=== PATIENT | male | born 1950 | race Caucasian/White ===

== ENCOUNTER → 2016-06-07 | Outpatient (CLI) | payer BC, OTHER ==
[~2016-06-07] VITALS: Ht 182.9 cm; Wt 88.5 kg
[~2016-06-07] MED LIST: ADENOSINE 74 MG in GIVE UN-DILUTED 0 ML IV ONE; ADENOSINE 90 MG/30 ML INJ IV ONE; IOHEXOL 350 MG/ML 100ML IJ ONE
[2016-06-07 10:35] VITALS: BP 137/82
[2016-06-07 12:30] VITALS: BP 140/68
[2016-06-07 17:35] LABS: Albumin 3.9 g/dL (3.4-5.0); BUN/Creatinine Ratio 17.5; Bilirubin, Direct 0.1 mg/dL (0-0.2); Bilirubin, Total 0.4 mg/dL (0.2-1.0); Calcium 9.2 mg/dL (8.5-10.1); Potassium 4.3 mmol/L (3.5-5.1); Total Protein 7.6 g/dL (6.4-8.2)
[2016-06-07 17:36] LABS: Basophils # (auto) 0.1 uL; Basophils % (auto) 0.7 % (0.0-2.0); Eosinophils # (auto) 0.3 uL; Eosinophils % (auto) 3.3 % (0.0-7.0); Hematocrit 53.3 % (41.0-53.0); Hemoglobin 17.7 g/dL (13.5-17.5); Lymphocytes # (auto) 2.4 uL; Lymphocytes % (auto) 26.1 % (10.0-50.0); Mean Corpuscular Hemoglobin 31.3 pg (28.0-32.0); Mean Corpuscular Hgb Conc. 33.1 g/dL (32.0-36.0); Mean Corpuscular Volume 94.6 fL (80.0-100.0); Mean Platelet Volume 9.9 fL (7.4-10.4); Monocytes # (auto) 0.6 uL; Neutrophils # (auto) 5.9 uL; Neutrophils % (auto) 63.9 % (37.0-80.0); Platelet Count (auto) 239 10^3/uL (140-450); Red Cell Distribution Width 14.4 % (11.6-16.0); White Blood Cell 9.3 10^3/uL (4.4-10.8)
== END | disposition home or self-care (01) ==
LOC: Rad HDHVI 10:02
PROVIDERS: ATTEND Internal Medicine Cardiovascular Disease
DX: E03.9 Hypothyroidism, unspecified (principal); R97.20 Elevated prostate specific antigen [PSA]; R53.81 Other malaise; E55.9 Vitamin D deficiency, unspecified; E11.9 Type 2 diabetes mellitus without complications
CPT/HCPCS: 36415; 78452; 80048; 80061; 80076; 82306; 83036; 84153; 84403; 84439; 84443; 85025; 93005; 93880; 96374; 96375; G0463; J0153

== ENCOUNTER → 2016-07-31 | Outpatient (CLI) | payer BC ==
[~2016-07-31] MED LIST changes: -ADENOSINE 74 MG in GIVE UN-DILUTED 0 ML IV ONE; -ADENOSINE 90 MG/30 ML INJ IV ONE; +ASPI-231 PO; +ATEN-60 PO; +CLOP75TA41 PO; +DAPA1TAB2 PO; +GEMF600T3 PO; +GLIP-115 PO; -IOHEXOL 350 MG/ML 100ML IJ ONE; +LEVEMIR SC; +METF-316 PO; +TADA5TAB11 PO
[2016-07-31 12:36] LABS: Basophils # (auto) 0 uL; Basophils % (auto) 0.6 % (0.0-2.0); Eosinophils # (auto) 0.2 uL; Hematocrit 50.8 % (41.0-53.0); Hemoglobin 17.6 g/dL (13.5-17.5); Lymphocytes # (auto) 1.8 uL; Lymphocytes % (auto) 21.7 % (10.0-50.0); Mean Corpuscular Hemoglobin 31.9 pg (28.0-32.0); Mean Corpuscular Hgb Conc. 34.6 g/dL (32.0-36.0); Mean Corpuscular Volume 92.3 fL (80.0-100.0); Mean Platelet Volume 10.2 fL (7.4-10.4); Monocytes # (auto) 0.5 uL; Monocytes % (auto) 5.5 % (0.0-12.0); Neutrophils # (auto) 5.7 uL; Neutrophils % (auto) 69.2 % (37.0-80.0); Platelet Count (auto) 225 10^3/uL (140-450); Red Cell Distribution Width 13.9 % (11.6-16.0); White Blood Cell 8.3 10^3/uL (4.4-10.8)
[2016-07-31 12:40] LABS: INR 1.04 (0.9-1.15); Prothrombin Time 10.7 sec (9.37-12.3)
[2016-07-31 13:12] LABS: BUN/Creatinine Ratio 14.9; Calcium 8.6 mg/dL (8.5-10.1)
== END | disposition home or self-care (01) ==
LOC: Rad HDHVI 08:52
PROVIDERS: ATTEND Internal Medicine Cardiovascular Disease
DX: I10 Essential (primary) hypertension (principal); D64.9 Anemia, unspecified; R79.1 Abnormal coagulation profile
CPT/HCPCS: 36415; 71020; 80048; 85025; 85610; 85730; 93005; G0463

== ENCOUNTER 2016-08-03 06:56 | Inpatient (IN) | payer BC ==
[~2016-08-03] VITALS: Ht 182.9 cm; Wt 88.3 kg
[~2016-08-03 06:56] MED LIST changes: +LIDOCAINE 2%HCL (LOCAL ANESTH.) INJ 20ML MDV ONE
[2016-08-03] MEDS ORDERED: LIDOCAINE 2%HCL (LOCAL ANESTH.) INJ 20ML MDV ONE (07:00)
[2016-08-03] MEDS ORDERED: IOHEXOL 350 MG/ML 100ML IJ ONE (07:00)
[2016-08-03] MEDS ORDERED: IODIXANOL 320MG/ML 100ML BTL IV ONE (08:33)
[2016-08-03] MEDS ORDERED: MIDAZOLAM HCL 1MG/1ML-2 ML VIAL ONE (08:35)
[2016-08-03] MEDS ORDERED: ANGIOMAX 250 MG VIAL IV ONE (08:36)
[2016-08-03] MEDS ORDERED: SODIUM CHL 0.9% 50 ML ONE (08:36)
[2016-08-03] MEDS ORDERED: fentaNYL CITRATE 100 MCG/2 ML VL ONE (08:36)
[2016-08-03] MEDS ORDERED: SODIUM CHLORIDE 0.9% 1,000 ML IV SCH (09:48)
[2016-08-03] MEDS ORDERED: ASPirin-EC 81 mg tab PO SCH (10:00)
[2016-08-03] MEDS ORDERED: INSULIN DETEMIR(LEVEMIR) 1unit/0.01ml Soln (100units/ml) SC SCH (10:00)
[2016-08-03] MEDS ORDERED: CLOPIDOGREL BISULFATE 75 MG TAB PO SCH (10:00)
[2016-08-03] MEDS ORDERED: ATENOLOL 25 MG TAB PO SCH (10:00)
[2016-08-03] MEDS ORDERED: ACETAMINOPHEN 500 MG TAB PO PRN (10:00)
[2016-08-03] MEDS ORDERED: GEMFIBROZIL 600 MG TAB PO SCH (10:00)
[2016-08-03] MEDS ORDERED: ONDANSETRON HCL 4 MG/2 ML VIAL IV PRN (10:00)
[2016-08-03] MEDS ORDERED: DEXTROSE (50%) 50ML SYRG IV PRN (10:00)
[2016-08-03] MEDS ORDERED: TADALAFIL 5 MG PO SCH (11:00)
[2016-08-03] MEDS ORDERED: DAPAGLIFLOZIN 10 MG PO SCH (11:00)
[2016-08-03] MEDS ORDERED: glipiZIDE 5 MG TAB PO SCH (11:30)
[2016-08-03 11:54] VITALS: BP 121/67
[2016-08-03] MEDS: ACCU-CHEK COMFORT CURVE STRIP VI SCH ×3 (12:08→22:06)
[2016-08-03] MEDS: InsuLIN REG 1unit/0.01ml Soln (100units/ml) SC SCH ×2 (12:12→18:26)
[2016-08-03] MEDS: HYDROcodone-ACET 5/325MG TAB PO PRN ×2 (16:00→22:09)
[2016-08-03] MEDS: SODIUM CHLOR 0.9% PF (SALINE LOCK) 10ML VIAL IV SCH ×2 (16:00→22:06)
[2016-08-03 16:30] VITALS: BP 151/76
[2016-08-03 22:00] VITALS: BP 135/82
[2016-08-03] MEDS ORDERED: InsuLIN REG 1unit/0.01ml Soln (100units/ml) SC SCH (22:00)
[2016-08-04 05:30] VITALS: BP 138/84
[2016-08-04] MEDS: SODIUM CHLOR 0.9% PF (SALINE LOCK) 10ML VIAL IV SCH (06:33)
[2016-08-04] MEDS: ACCU-CHEK COMFORT CURVE STRIP VI SCH (06:33)
[2016-08-04] MEDS: HYDROcodone-ACET 5/325MG TAB PO PRN (06:37)
[2016-08-04] MEDS: InsuLIN REG 1unit/0.01ml Soln (100units/ml) SC SCH (06:37)
[2016-08-04 08:05] VITALS: BP 142/84
[2016-08-04 08:08] VITALS: BP 142/84
[2016-08-04 09:27] VITALS: BP 121/68
== END 2016-08-04 10:20 | disposition home or self-care (01) | DRG 272 ==
LOC: CATH 06:56 → TELE-E-ADS 06:57 → TELE-CENTR 14:29 → CENTRAL 14:31
PROVIDERS: ADMIT Internal Medicine Cardiovascular Disease; ATTEND Internal Medicine Cardiovascular Disease
PROC: 047K34Z Dilation of Right Femoral Artery with Drug-eluting Intraluminal Device, Percutaneous Approach (ICD-10-PCS; principal; 2016-08-03)
PROC: 04CK3ZZ Extirpation of Matter from Right Femoral Artery, Percutaneous Approach (ICD-10-PCS; 2016-08-03)
PROC: 047M3Z1 Dilation of Right Popliteal Artery using Drug-Coated Balloon, Percutaneous Approach (ICD-10-PCS; 2016-08-03)
PROC: 04CM3ZZ Extirpation of Matter from Right Popliteal Artery, Percutaneous Approach (ICD-10-PCS; 2016-08-03)
PROC: B41G1ZZ Fluoroscopy of Left Lower Extremity Arteries using Low Osmolar Contrast (ICD-10-PCS; 2016-08-03)
PROC: B41F1ZZ Fluoroscopy of Right Lower Extremity Arteries using Low Osmolar Contrast (ICD-10-PCS; 2016-08-03)
DX: I70.202 Unspecified atherosclerosis of native arteries of extremities, left leg (principal)
CPT/HCPCS: 82962; C1769; J1815; J2250; Q9967

== ENCOUNTER → 2016-08-24 | Outpatient (CLI) | payer BC ==
[~2016-08-24] MED LIST changes: -LIDOCAINE 2%HCL (LOCAL ANESTH.) INJ 20ML MDV ONE
== END | disposition home or self-care (01) ==
LOC: LAB 13:05
PROVIDERS: ATTEND Internal Medicine Cardiovascular Disease
DX: Z22.322 Carrier or suspected carrier of Methicillin resistant Staphylococcus aureus (principal); R89.9 Unspecified abnormal finding in specimens from other organs, systems and tissues
CPT/HCPCS: 87081; 87205

== ENCOUNTER → 2016-09-19 | Outpatient (CLI) | payer BC ==
[~2016-09-19] VITALS: Ht 182.9 cm; Wt 88.5 kg
[2016-09-19 09:15] VITALS: BP 136/71
[2016-09-19 09:40] VITALS: BP 126/71
[2016-09-19 16:27] LABS: BUN/Creatinine Ratio 20.2; Calcium 9.2 mg/dL (8.5-10.1); Potassium 4.5 mmol/L (3.5-5.1)
[2016-09-19 16:31] LABS: Basophils # (auto) 0.1 uL; Basophils % (auto) 0.7 % (0.0-2.0); Eosinophils # (auto) 0.4 uL; Eosinophils % (auto) 4.2 % (0.0-7.0); Lymphocytes # (auto) 2.8 uL; Lymphocytes % (auto) 30.8 % (10.0-50.0); Mean Corpuscular Hemoglobin 30.9 pg (28.0-32.0); Mean Corpuscular Hgb Conc. 32.8 g/dL (32.0-36.0); Mean Corpuscular Volume 94.2 fL (80.0-100.0); Mean Platelet Volume 9.9 fL (7.4-10.4); Monocytes # (auto) 0.5 uL; Monocytes % (auto) 5.9 % (0.0-12.0); Neutrophils # (auto) 5.4 uL; Neutrophils % (auto) 58.4 % (37.0-80.0); Platelet Count (auto) 249 10^3/uL (140-450); Red Cell Distribution Width 15.3 % (11.6-16.0); White Blood Cell 9.2 10^3/uL (4.4-10.8)
[2016-09-19 16:39] LABS: INR 0.99 (0.9-1.15); Partial Thromboplastin Time 28.3 sec (22.64-33.71); Prothrombin Time 10.7 sec (9.37-12.3)
== END | disposition home or self-care (01) ==
LOC: Rad HDHVI 08:56
PROVIDERS: ATTEND Internal Medicine Cardiovascular Disease
DX: Z01.810 Encounter for preprocedural cardiovascular examination (principal); I10 Essential (primary) hypertension; D64.9 Anemia, unspecified; R79.1 Abnormal coagulation profile
CPT/HCPCS: 36415; 71020; 80048; 85025; 85610; 85730; 93005; G0463

== ENCOUNTER 2016-09-21 06:56 | Inpatient (IN) | payer BC ==
[~2016-09-21] VITALS: Ht 182.9 cm; Wt 90.1 kg
[~2016-09-21 06:56] MED LIST changes: -GLIP-115 PO; -LEVEMIR SC
[2016-09-21] MEDS ORDERED: LIDOCAINE 2%HCL (LOCAL ANESTH.) INJ 20ML MDV ONE (07:40)
[2016-09-21] MEDS ORDERED: IOHEXOL 350 MG/ML 100ML IJ ONE (07:40)
[2016-09-21] MEDS ORDERED: MIDAZOLAM HCL 1MG/1ML-2 ML VIAL ONE (08:48)
[2016-09-21] MEDS ORDERED: SODIUM CHL 0.9% 50 ML ONE (08:48)
[2016-09-21] MEDS ORDERED: ANGIOMAX 250 MG VIAL IV ONE (08:48)
[2016-09-21] MEDS ORDERED: fentaNYL CITRATE 100 MCG/2 ML VL ONE (08:48)
[2016-09-21] MEDS ORDERED: SODIUM CHLORIDE 0.9% 1,000 ML IV SCH (10:37)
[2016-09-21] MEDS ORDERED: ACETAMINOPHEN 500 MG TAB PO PRN (10:45)
[2016-09-21] MEDS ORDERED: DEXTROSE (50%) 50ML SYRG IV PRN (10:45)
[2016-09-21] MEDS: CLOPIDOGREL BISULFATE 75 MG TAB PO SCH (10:59)
[2016-09-21] MEDS: ASPirin-EC 81 mg tab PO SCH (10:59)
[2016-09-21] MEDS: ATENOLOL 25 MG TAB PO SCH (10:59)
[2016-09-21] MEDS: GEMFIBROZIL 600 MG TAB PO SCH (11:00)
[2016-09-21] MEDS: InsuLIN REG 1unit/0.01ml Soln (100units/ml) SC SCH ×2 (11:30→17:05)
[2016-09-21] MEDS: ACCU-CHEK COMFORT CURVE STRIP VI SCH ×3 (11:30→22:14)
[2016-09-21 12:26] VITALS: BP 133/76
[2016-09-21] MEDS: HYDROcodone-ACET 5/325MG TAB PO PRN ×2 (16:04→20:17)
[2016-09-21 16:56] VITALS: BP 140/73
[2016-09-21 22:00] VITALS: BP 139/70
[2016-09-21] MEDS ORDERED: InsuLIN REG 1unit/0.01ml Soln (100units/ml) SC SCH (22:00)
[2016-09-22] MEDS: HYDROcodone-ACET 5/325MG TAB PO PRN (01:10)
[2016-09-22 05:00] VITALS: BP 135/81
[2016-09-22] MEDS: ACCU-CHEK COMFORT CURVE STRIP VI SCH ×2 (05:58→11:41)
[2016-09-22] MEDS: InsuLIN REG 1unit/0.01ml Soln (100units/ml) SC SCH ×2 (05:59→11:45)
[2016-09-22 09:00] VITALS: BP 137/71
[2016-09-22] MEDS: CLOPIDOGREL BISULFATE 75 MG TAB PO SCH (09:55)
[2016-09-22] MEDS: ASPirin-EC 81 mg tab PO SCH (09:55)
[2016-09-22] MEDS: GEMFIBROZIL 600 MG TAB PO SCH (09:55)
[2016-09-22] MEDS: ATENOLOL 25 MG TAB PO SCH (09:56)
[2016-09-22] MEDS ORDERED: PATIENTS OWN MEDICATION (Dapagliflozin Propanediol (Farxiga) 10 MG) PO SCH (10:00)
[2016-09-22] MEDS ORDERED: Dapagliflozin Propanediol (Farxiga) 10 MG PO SCH (10:00)
[2016-09-22 11:58] VITALS: BP 137/71
[2016-09-22] MEDS ORDERED: LEVEMIR SC (12:08)
== END 2016-09-22 13:06 | disposition home or self-care (01) | DRG 272 ==
LOC: CATH 06:56 → WEST WING 06:57
PROVIDERS: ADMIT Internal Medicine Cardiovascular Disease; ATTEND Internal Medicine Cardiovascular Disease
PROC: 047L341 Dilation of Left Femoral Artery with Drug-eluting Intraluminal Device, using Drug-Coated Balloon, Percutaneous Approach (ICD-10-PCS; principal; 2016-09-21)
PROC: 04CL3ZZ Extirpation of Matter from Left Femoral Artery, Percutaneous Approach (ICD-10-PCS; 2016-09-21)
PROC: B41G1ZZ Fluoroscopy of Left Lower Extremity Arteries using Low Osmolar Contrast (ICD-10-PCS; 2016-09-21)
PROC: B41F1ZZ Fluoroscopy of Right Lower Extremity Arteries using Low Osmolar Contrast (ICD-10-PCS; 2016-09-21)
DX: I73.9 Peripheral vascular disease, unspecified (principal); D69.9 Hemorrhagic condition, unspecified; E78.5 Hyperlipidemia, unspecified; I10 Essential (primary) hypertension; I25.10 Atherosclerotic heart disease of native coronary artery without angina pectoris; Z95.820 Peripheral vascular angioplasty status with implants and grafts
CPT/HCPCS: 82962; C1769; J1815; J2250

== ENCOUNTER → 2016-11-14 | Outpatient (CLI) | payer BC, MEDICARE, OTHER ==
[~2016-11-14] MED LIST changes: +LEVEMIR SC; -METF-316 PO; +METF-372 PO
== END | disposition home or self-care (01) ==
LOC: Rad HDHVI 08:30
PROVIDERS: ATTEND Internal Medicine Cardiovascular Disease
DX: I73.9 Peripheral vascular disease, unspecified (principal); E11.9 Type 2 diabetes mellitus without complications
CPT/HCPCS: 93926

== ENCOUNTER → 2017-02-01 | Outpatient (CLI) | payer BC ==
[2017-02-01 12:19] LABS: Urine Bilirubin Negative (Negative); Urine Blood TRACE /uL (Negative); Urine Color Yellow (Yellow); Urine Glucose 4+ mg/dL (Normal); Urine Ketone Negative (Negative); Urine Nitrite Negative (Negative); Urine Urobilinogen Normal (Negative)
[2017-02-01 12:23] LABS: Basophils # (auto) 0.1 uL; Basophils % (auto) 0.9 % (0.0-2.0); CONDITION Y; Eosinophils # (auto) 0.3 uL; Eosinophils % (auto) 3.9 % (0.0-7.0); Hematocrit 55.8 % (41.0-53.0); Hemoglobin 18.4 g/dL (13.5-17.5); Lymphocytes # (auto) 2.4 uL; Lymphocytes % (auto) 30.9 % (10.0-50.0); Mean Corpuscular Hemoglobin 31.4 pg (28.0-32.0); Mean Corpuscular Volume 94.9 fL (80.0-100.0); Mean Platelet Volume 10.1 fL (7.4-10.4); Monocytes # (auto) 0.6 uL; Monocytes % (auto) 7.2 % (0.0-12.0); Neutrophils # (auto) 4.5 uL; Neutrophils % (auto) 57.1 % (37.0-80.0); Platelet Count (auto) 221 10^3/uL (140-450); Red Cell Distribution Width 14.3 % (11.6-16.0); White Blood Cell 7.8 10^3/uL (4.4-10.8)
[2017-02-01 13:02] LABS: Alkaline Phosphatase 68 U/L (45-117); Anion Gap 10 (5-15); Aspartate Aminotransferase 10 U/L (15-37); BUN/Creatinine Ratio 19.6; Blood Urea Nitrogen 20 mg/dL (7-18); Carbon Dioxide 22 mmol/L (21-32); Chloride 107 mmol/L (98-107); GFR African American 94 mL/min; GFR Non-African American 78 mL/min; Glucose 142 mg/dL (74-106); Potassium 4.1 mmol/L (3.5-5.1); Sodium 139 mmol/L (136-145)
[2017-02-01 13:03] LABS: Albumin 3.9 g/dL (3.4-5.0); Bilirubin, Direct 0.2 mg/dL (0-0.2); Bilirubin, Total 0.6 mg/dL (0.2-1.0); Calcium 9.4 mg/dL (8.5-10.1); Cholesterol 209 mg/dL (< 200); HDL Cholesterol 33 mg/dL (40-59); Total Protein 7.9 g/dL (6.4-8.2); Triglycerides 413 mg/dL (< 150)
== END | disposition home or self-care (01) ==
LOC: LAB 07:57
PROVIDERS: ATTEND Internal Medicine Cardiovascular Disease
DX: I10 Essential (primary) hypertension (principal); E78.00 Pure hypercholesterolemia, unspecified; K74.1 Hepatic sclerosis; E11.9 Type 2 diabetes mellitus without complications; R97.20 Elevated prostate specific antigen [PSA]; R53.81 Other malaise; E03.9 Hypothyroidism, unspecified; D64.9 Anemia, unspecified; E55.9 Vitamin D deficiency, unspecified; N39.0 Urinary tract infection, site not specified
CPT/HCPCS: 36415; 80048; 80061; 80076; 81003; 82306; 83036; 84153; 84403; 84443; 85025

== ENCOUNTER 2018-02-09 09:15 | Inpatient (IN) | payer BC, MEDICARE ==
[~2018-02-09] VITALS: Ht 182.9 cm; Wt 82.5 kg
[~2018-02-09 09:15] MED LIST changes: -DAPA1TAB2 PO; +DAPA1TAB4 PO; -GEMF600T3 PO; +GEMF600T7 PO
[2018-02-09] MEDS ORDERED: SODIUM CHLORIDE 0.9% 1,000 ML IV ONE (10:12)
[2018-02-09] MEDS ORDERED: METOCLOPRAMIDE HCL 5MG/ml INJ 2ml VIAL IV ONE (10:15)
[2018-02-09] MEDS ORDERED: MORPHINE SULFATE 4 MG/ML SYR/VIAL IV ONE (10:15)
[2018-02-09 10:59] LABS: Basophils # (auto) 0 uL; Hemoglobin 18.7 g/dL (13.5-17.5); Lymphocytes # (auto) 0.6 uL
[2018-02-09 11:10] LABS: Basophils % (auto) 0.2 % (0.0-2.0); Eosinophils # (auto) 0.1 uL; Eosinophils % (auto) 1.3 % (0.0-7.0); Hematocrit 54.1 % (41.0-53.0); Mean Corpuscular Hemoglobin 32.6 pg (28.0-32.0); Mean Corpuscular Hgb Conc. 34.6 g/dL (32.0-36.0); Mean Corpuscular Volume 94.3 fL (80.0-100.0); Monocytes # (auto) 0.7 uL; Monocytes % (auto) 7.7 % (0.0-12.0); Neutrophils # (auto) 7.2 uL; Neutrophils % (auto) 83.8 % (37.0-80.0); Nucleated Red Blood Cells % 0.1 %; Platelet Count (auto) 63 10^3/uL (140-450); Red Blood Cells 5.74 10^6/uL (4.5-5.90); Red Cell Distribution Width 14.9 % (11.8-14.3); White Blood Cell 8.5 10^3/uL (4.4-10.8)
[2018-02-09 11:12] LABS: Lipase 1216 U/L (73-393); Magnesium 3.9 mg/dL (1.6-2.6)
[2018-02-09 11:22] LABS: BUN/Creatinine Ratio 41.3; Bilirubin, Total 10.7 mg/dL (0.2-1.0); Calcium 9.2 mg/dL (8.5-10.1); Potassium 3.6 mmol/L (3.5-5.1)
[2018-02-09 11:34] LABS: Albumin 2.1 g/dL (3.4-5.0)
[2018-02-09 11:41] LABS: Urine Bacteria NONE SEEN /hpf (None Seen); Urine Blood 2+ /uL (Negative); Urine Specific Gravity 1.025 (1.001-1.035); Urine WBC 3 /hpf (0 - 3)
[2018-02-09] MEDS ORDERED: IOHEXOL 300 MG/ML 100ML BOTTLE IJ ONE (12:54)
[2018-02-09] MEDS ORDERED: DIGOXIN (250MCG/ML) 2 ML AMPULE IV ONE ×2 (14:00→14:45)
[2018-02-09] MEDS ORDERED: SOTALOL HCL 80 MG TAB PO ONE (14:00)
[2018-02-09] MEDS: ENOXAPARIN SOD 60 MG/0.6 ML SYRINGE SC SCH ×2 (14:09→23:16)
[2018-02-09] MEDS ORDERED: DEXTROSE (50%) 50ML SYRG IV PRN (14:15)
[2018-02-09] MEDS: D5W/SOD CHLO 0.9% 1,000 ML IV SCH (14:28)
[2018-02-09] MEDS ORDERED: PIPERACILLIN-TAZO 4.5GM 100 ML IV SCH (15:00)
[2018-02-09] MEDS: FAMOTIDINE (10MG/ML) 2ML VL IV SCH (15:48)
[2018-02-09] MEDS ORDERED: ONDANSETRON HCL 4 MG/2 ML VIAL ONE (15:52)
[2018-02-09] MEDS: ONDANSETRON HCL 4 MG/2 ML VIAL IV PRN (16:04)
[2018-02-09] MEDS: HYDROmorphone HCL 2 MG/ML VL IV PRN (16:05)
[2018-02-09] MEDS: InsuLIN REG 1unit/0.01ml Soln (100units/ml) SC SCH ×2 (17:00→21:20)
[2018-02-09 17:27] VITALS: BP 99/62
[2018-02-09] MEDS: ACCU-CHEK COMFORT CURVE STRIP VI SCH ×2 (17:33→21:20)
[2018-02-09 17:34] VITALS: BP 99/62
[2018-02-09 22:33] VITALS: BP 104/59
[2018-02-09] MEDS: PIPERACILLIN-TAZO 4.5GM 100 ML IV SCH (23:12)
[2018-02-09] MEDS: SOTALOL HCL 80 MG TAB PO SCH (23:14)
[2018-02-09] MEDS: GEMFIBROZIL 600 MG TAB PO SCH (23:16)
[2018-02-10 04:52] VITALS: BP 109/60
[2018-02-10] MEDS: PIPERACILLIN-TAZO 4.5GM 100 ML IV SCH ×3 (06:32→22:42)
[2018-02-10] MEDS: InsuLIN REG 1unit/0.01ml Soln (100units/ml) SC SCH ×4 (06:50→22:44)
[2018-02-10] MEDS: ACCU-CHEK COMFORT CURVE STRIP VI SCH ×4 (06:51→22:44)
[2018-02-10] MEDS: D5W/SOD CHLO 0.9% 1,000 ML IV SCH ×2 (07:45→19:10)
[2018-02-10 08:05] VITALS: BP 103/66
[2018-02-10 09:00] VITALS: BP 103/66
[2018-02-10] MEDS: ENOXAPARIN SOD 60 MG/0.6 ML SYRINGE SC SCH ×3 (10:00→22:00)
[2018-02-10] MEDS ORDERED: CLOPIDOGREL BISULFATE 75 MG TAB PO SCH (10:00)
[2018-02-10] MEDS: METOPROLOL SUCCINATE XL 50 MG TAB PO SCH (10:00)
[2018-02-10] MEDS: SOTALOL HCL 80 MG TAB PO SCH ×2 (10:00→22:00)
[2018-02-10] MEDS: ASPirin 81 mg TAB PO SCH (10:32)
[2018-02-10] MEDS: FAMOTIDINE (10MG/ML) 2ML VL IV SCH (10:33)
[2018-02-10] MEDS: GEMFIBROZIL 600 MG TAB PO SCH ×2 (10:34→22:43)
[2018-02-10] MEDS: ONDANSETRON HCL 4 MG/2 ML VIAL IV PRN (12:21)
[2018-02-10] MEDS: HYDROmorphone HCL 2 MG/ML VL IV PRN (12:21)
[2018-02-10 13:00] VITALS: BP 115/69
[2018-02-10 17:00] VITALS: BP 115/57
[2018-02-10 21:38] VITALS: BP 124/70
[2018-02-10 22:20] LABS: INR 1.06 (0.9-1.15); Prothrombin Time 11.3 sec (9.27-12.13)
[2018-02-11 05:34] VITALS: BP 115/74
[2018-02-11] MEDS: D5W/SOD CHLO 0.9% 1,000 ML IV SCH ×2 (06:26→19:22)
[2018-02-11] MEDS: ACCU-CHEK COMFORT CURVE STRIP VI SCH ×4 (06:26→21:57)
[2018-02-11] MEDS: InsuLIN REG 1unit/0.01ml Soln (100units/ml) SC SCH ×4 (06:26→21:57)
[2018-02-11] MEDS: PIPERACILLIN-TAZO 4.5GM 100 ML IV SCH (07:08)
[2018-02-11 08:00] VITALS: BP 115/74
[2018-02-11 08:48] VITALS: BP 130/58
[2018-02-11] MEDS: METOPROLOL SUCCINATE XL 50 MG TAB PO SCH (10:00)
[2018-02-11] MEDS: SOTALOL HCL 80 MG TAB PO SCH ×2 (10:00→21:56)
[2018-02-11] MEDS: ENOXAPARIN SOD 60 MG/0.6 ML SYRINGE SC SCH ×2 (10:00→21:57)
[2018-02-11] MEDS: FAMOTIDINE (10MG/ML) 2ML VL IV SCH (10:37)
[2018-02-11] MEDS: GEMFIBROZIL 600 MG TAB PO SCH ×2 (10:38→21:57)
[2018-02-11] MEDS: ASPirin 81 mg TAB PO SCH (10:38)
[2018-02-11 13:00] VITALS: BP 135/64
[2018-02-11] MEDS: PIPERACILLIN-TAZOB 3.375GM 100 ML IV SCH ×2 (15:40→20:45)
[2018-02-11 15:46] LABS: Albumin 1.7 g/dL (3.4-5.0); BUN/Creatinine Ratio 29.9; Bilirubin, Total 7.8 mg/dL (0.2-1.0); Calcium 8.2 mg/dL (8.5-10.1); Potassium 3.4 mmol/L (3.5-5.1); Total Protein 6.4 g/dL (6.4-8.2)
[2018-02-11 17:19] VITALS: BP 136/75
[2018-02-11 22:00] VITALS: BP 121/57
[2018-02-12] MEDS: PIPERACILLIN-TAZOB 3.375GM 100 ML IV SCH ×4 (02:45→22:04)
[2018-02-12 05:30] VITALS: BP 152/81
[2018-02-12] MEDS: InsuLIN REG 1unit/0.01ml Soln (100units/ml) SC SCH ×4 (06:22→22:12)
[2018-02-12] MEDS: ACCU-CHEK COMFORT CURVE STRIP VI SCH ×4 (06:22→22:12)
[2018-02-12] MEDS: D5W/SOD CHLO 0.9% 1,000 ML IV SCH ×2 (08:40→22:00)
[2018-02-12 09:00] VITALS: BP 145/79
[2018-02-12] MEDS: GEMFIBROZIL 600 MG TAB PO SCH ×2 (09:45→22:12)
[2018-02-12] MEDS: FAMOTIDINE (10MG/ML) 2ML VL IV SCH (09:49)
[2018-02-12] MEDS: ENOXAPARIN SOD 60 MG/0.6 ML SYRINGE SC SCH ×2 (10:00→22:00)
[2018-02-12 13:00] VITALS: BP_SYST 130; BP_SYST 163; BP_DIAS 73; BP_DIAS 95
[2018-02-12] MEDS: ASPirin 81 mg TAB PO SCH (15:37)
[2018-02-12] MEDS: SOTALOL HCL 80 MG TAB PO SCH ×2 (15:40→21:01)
[2018-02-12] MEDS: POTASSIUM CHL 20MEQ/100ML 100 ML IV SCH ×2 (16:12→17:00)
[2018-02-12 17:18] LABS: Albumin 1.6 g/dL (3.4-5.0); BUN/Creatinine Ratio 23.8; Calcium 7.7 mg/dL (8.5-10.1); Potassium 3.7 mmol/L (3.5-5.1)
[2018-02-12 17:21] LABS: Bilirubin, Total 6.3 mg/dL (0.2-1.0); Total Protein 6.3 g/dL (6.4-8.2)
[2018-02-12 19:57] LABS: Basophils # (auto) 0.1 uL; Basophils % (auto) 0.7 % (0.0-2.0); Eosinophils # (auto) 0.4 uL; Eosinophils % (auto) 2.9 % (0.0-7.0); Hematocrit 46.5 % (41.0-53.0); Lymphocytes # (auto) 1.1 uL; Lymphocytes % (auto) 9.2 % (10.0-50.0); Mean Corpuscular Hemoglobin 32.5 pg (28.0-32.0); Mean Corpuscular Hgb Conc. 34.3 g/dL (32.0-36.0); Mean Corpuscular Volume 94.6 fL (80.0-100.0); Monocytes # (auto) 0.8 uL; Monocytes % (auto) 6.2 % (0.0-12.0); Platelet Count (auto) 181 10^3/uL (140-450); Red Blood Cells 4.92 10^6/uL (4.5-5.90); Red Cell Distribution Width 15.1 % (11.8-14.3); White Blood Cell 12.4 10^3/uL (4.4-10.8)
[2018-02-12 21:57] VITALS: BP 136/77
[2018-02-13] MEDS: PIPERACILLIN-TAZOB 3.375GM 100 ML IV SCH ×4 (03:47→20:52)
[2018-02-13 04:51] VITALS: BP 139/72
[2018-02-13] MEDS: InsuLIN REG 1unit/0.01ml Soln (100units/ml) SC SCH ×4 (06:37→21:52)
[2018-02-13] MEDS: ACCU-CHEK COMFORT CURVE STRIP VI SCH ×4 (06:37→21:53)
[2018-02-13 08:00] VITALS: BP 120/63
[2018-02-13 08:28] LABS: Albumin 1.6 g/dL (3.4-5.0); BUN/Creatinine Ratio 19.5; Bilirubin, Total 5.8 mg/dL (0.2-1.0); Calcium 7.8 mg/dL (8.5-10.1); Potassium 3.8 mmol/L (3.5-5.1); Total Protein 6.3 g/dL (6.4-8.2)
[2018-02-13 09:00] VITALS: BP 120/63
[2018-02-13] MEDS: SOTALOL HCL 80 MG TAB PO SCH ×2 (09:53→21:52)
[2018-02-13] MEDS: FAMOTIDINE (10MG/ML) 2ML VL IV SCH (09:53)
[2018-02-13] MEDS: ASPirin 81 mg TAB PO SCH (09:53)
[2018-02-13] MEDS: ENOXAPARIN SOD 60 MG/0.6 ML SYRINGE SC SCH ×3 (09:54→21:53)
[2018-02-13] MEDS: GEMFIBROZIL 600 MG TAB PO SCH ×2 (09:54→21:52)
[2018-02-13] MEDS: D5W/SOD CHLO 0.9% 1,000 ML IV SCH (11:20)
[2018-02-13 13:00] VITALS: BP 124/66
[2018-02-13 17:00] VITALS: BP 126/68
[2018-02-13 21:58] VITALS: BP 140/67
[2018-02-14] VITALS (7 sets, daily range): BP systolic 134–158; BP diastolic 60–73
[2018-02-14] MEDS: D5W/SOD CHLO 0.9% 1,000 ML IV SCH ×2 (00:42→13:14)
[2018-02-14] MEDS: PIPERACILLIN-TAZOB 3.375GM 100 ML IV SCH ×4 (02:52→20:36)
[2018-02-14] MEDS: InsuLIN REG 1unit/0.01ml Soln (100units/ml) SC SCH ×4 (07:04→20:46)
[2018-02-14] MEDS: ACCU-CHEK COMFORT CURVE STRIP VI SCH ×4 (07:04→20:45)
[2018-02-14] MEDS ORDERED: chlorproMAZINE HCL 25 MG TAB PO ONE (09:30)
[2018-02-14] MEDS: ASPirin 81 mg TAB PO SCH (09:32)
[2018-02-14] MEDS: SOTALOL HCL 80 MG TAB PO SCH ×2 (09:32→20:55)
[2018-02-14] MEDS: GEMFIBROZIL 600 MG TAB PO SCH ×2 (09:32→21:03)
[2018-02-14] MEDS: ENOXAPARIN SOD 60 MG/0.6 ML SYRINGE SC SCH ×2 (09:33→20:45)
[2018-02-14] MEDS: FAMOTIDINE (10MG/ML) 2ML VL IV SCH (09:33)
[2018-02-15] MEDS: PIPERACILLIN-TAZOB 3.375GM 100 ML IV SCH ×4 (03:32→20:24)
[2018-02-15] MEDS: D5W/SOD CHLO 0.9% 1,000 ML IV SCH ×2 (03:33→16:40)
[2018-02-15 05:40] VITALS: BP 145/78
[2018-02-15] MEDS: ACCU-CHEK COMFORT CURVE STRIP VI SCH ×4 (06:14→21:28)
[2018-02-15] MEDS: InsuLIN REG 1unit/0.01ml Soln (100units/ml) SC SCH ×4 (06:16→21:30)
[2018-02-15 06:31] LABS: Albumin 1.9 g/dL (3.4-5.0); Bilirubin, Direct 3.3 mg/dL (0-0.2); Bilirubin, Total 4.3 mg/dL (0.2-1.0); Total Protein 6.7 g/dL (6.4-8.2)
[2018-02-15 08:00] VITALS: BP 129/69
[2018-02-15 08:50] VITALS: BP 129/69
[2018-02-15] MEDS: SOTALOL HCL 80 MG TAB PO SCH ×2 (10:00→21:28)
[2018-02-15] MEDS: ENOXAPARIN SOD 60 MG/0.6 ML SYRINGE SC SCH ×2 (10:00→21:28)
[2018-02-15] MEDS: ASPirin 81 mg TAB PO SCH (10:06)
[2018-02-15] MEDS: GEMFIBROZIL 600 MG TAB PO SCH ×2 (10:07→21:30)
[2018-02-15] MEDS: ALBUMIN 25% 100 ML IV SCH (10:08)
[2018-02-15] MEDS: FAMOTIDINE (10MG/ML) 2ML VL IV SCH (10:08)
[2018-02-15 10:10] LABS: Amylase 71 U/L (25-115); Lipase 609 U/L (73-393)
[2018-02-15] MEDS: HYDROmorphone HCL 2 MG/ML VL IV PRN (11:58)
[2018-02-15 12:33] VITALS: BP 157/70
[2018-02-15 17:05] VITALS: BP 172/70
[2018-02-15] MEDS ORDERED: cloNIDine HCL 0.1 MG TAB PO SCH (18:00)
[2018-02-15] MEDS ORDERED: cloNIDine HCL 0.1 MG TAB PO PRN (18:30)
[2018-02-15 21:41] VITALS: BP 150/75
[2018-02-16] MEDS: PIPERACILLIN-TAZOB 3.375GM 100 ML IV SCH ×4 (02:24→21:16)
[2018-02-16 05:27] VITALS: BP 164/74
[2018-02-16] MEDS: InsuLIN REG 1unit/0.01ml Soln (100units/ml) SC SCH ×4 (06:06→22:01)
[2018-02-16] MEDS: ACCU-CHEK COMFORT CURVE STRIP VI SCH ×4 (06:06→22:01)
[2018-02-16] MEDS: ASPirin 81 mg TAB PO SCH (09:03)
[2018-02-16] MEDS: GEMFIBROZIL 600 MG TAB PO SCH ×2 (09:04→21:17)
[2018-02-16] MEDS: ALBUMIN 25% 100 ML IV SCH (09:04)
[2018-02-16] MEDS: SOTALOL HCL 80 MG TAB PO SCH ×2 (09:05→21:22)
[2018-02-16] MEDS: ENOXAPARIN SOD 60 MG/0.6 ML SYRINGE SC SCH ×2 (09:05→21:21)
[2018-02-16] MEDS: FAMOTIDINE (10MG/ML) 2ML VL IV SCH ×2 (09:05→10:00)
[2018-02-16 09:57] VITALS: BP 124/60
[2018-02-16 15:00] VITALS: BP 158/70
[2018-02-16 17:00] VITALS: BP 164/73
[2018-02-16 20:00] VITALS: BP 143/59
[2018-02-16] MEDS ORDERED: BISACODYL 5 MG EC TAB PO SCH (21:00)
[2018-02-16 21:30] VITALS: BP 143/59
[2018-02-16] MEDS ORDERED: DOCUSATE SOD 100 MG CAP PO ONE (21:45)
[2018-02-17] MEDS: PIPERACILLIN-TAZOB 3.375GM 100 ML IV SCH ×4 (02:29→20:47)
[2018-02-17 05:00] VITALS: BP 148/68
[2018-02-17] MEDS: ACCU-CHEK COMFORT CURVE STRIP VI SCH ×4 (07:06→22:23)
[2018-02-17] MEDS: InsuLIN REG 1unit/0.01ml Soln (100units/ml) SC SCH ×4 (07:07→22:31)
[2018-02-17] MEDS: ALBUMIN 25% 100 ML IV SCH ×2 (09:12→10:59)
[2018-02-17] MEDS: DOCUSATE SOD 100 MG CAP PO SCH (09:13)
[2018-02-17] MEDS: SOTALOL HCL 80 MG TAB PO SCH ×2 (09:13→22:00)
[2018-02-17] MEDS: GEMFIBROZIL 600 MG TAB PO SCH ×2 (09:13→22:32)
[2018-02-17] MEDS: ASPirin 81 mg TAB PO SCH (09:13)
[2018-02-17] MEDS: FAMOTIDINE (10MG/ML) 2ML VL IV SCH (09:13)
[2018-02-17] MEDS: ENOXAPARIN SOD 60 MG/0.6 ML SYRINGE SC SCH ×2 (09:14→22:00)
[2018-02-17 09:34] VITALS: BP 122/63
[2018-02-17 14:51] VITALS: BP 171/72
[2018-02-17 15:33] LABS: Basophils # (auto) 0.1 uL; Basophils % (auto) 1.8 % (0.0-2.0); Eosinophils # (auto) 0.2 uL; Eosinophils % (auto) 2.8 % (0.0-7.0); Hematocrit 43.4 % (41.0-53.0); Hemoglobin 14.6 g/dL (13.5-17.5); Lymphocytes # (auto) 1.6 uL; Lymphocytes % (auto) 21.1 % (10.0-50.0); Mean Corpuscular Hemoglobin 32.3 pg (28.0-32.0); Mean Corpuscular Hgb Conc. 33.6 g/dL (32.0-36.0); Mean Corpuscular Volume 96.3 fL (80.0-100.0); Monocytes # (auto) 0.5 uL; Monocytes % (auto) 6.9 % (0.0-12.0); Neutrophils # (auto) 5.3 uL; Neutrophils % (auto) 67.4 % (37.0-80.0); Nucleated Red Blood Cells % 0.1 %; Platelet Count (auto) 409 10^3/uL (140-450); Red Blood Cells 4.51 10^6/uL (4.5-5.90); Red Cell Distribution Width 15.6 % (11.8-14.3); White Blood Cell 7.8 10^3/uL (4.4-10.8)
[2018-02-17 15:46] LABS: INR 1.08 (0.9-1.15); Partial Thromboplastin Time 31.2 sec (23.78-33.04); Prothrombin Time 11.5 sec (9.27-12.13)
[2018-02-17 15:57] LABS: Albumin 2.9 g/dL (3.4-5.0); BUN/Creatinine Ratio 18.8; Bilirubin, Total 3.2 mg/dL (0.2-1.0); Calcium 8.5 mg/dL (8.5-10.1); Potassium 4.3 mmol/L (3.5-5.1); Total Protein 7.4 g/dL (6.4-8.2)
[2018-02-17 17:39] VITALS: BP 145/71
[2018-02-17 20:00] VITALS: BP 139/76
[2018-02-17 22:00] VITALS: BP 139/76
[2018-02-18] MEDS: PIPERACILLIN-TAZOB 3.375GM 100 ML IV SCH ×4 (02:57→22:13)
[2018-02-18 05:00] VITALS: BP 136/69
[2018-02-18] MEDS: InsuLIN REG 1unit/0.01ml Soln (100units/ml) SC SCH ×4 (07:00→22:35)
[2018-02-18] MEDS: ACCU-CHEK COMFORT CURVE STRIP VI SCH ×4 (07:00→22:14)
[2018-02-18 07:19] LABS: Albumin 2.8 g/dL (3.4-5.0); Bilirubin, Direct 2.3 mg/dL (0-0.2); Bilirubin, Total 3.5 mg/dL (0.2-1.0); Total Protein 7.4 g/dL (6.4-8.2)
[2018-02-18 08:03] LABS: Amylase 104 U/L (25-115); Lipase 718 U/L (73-393)
[2018-02-18 09:00] VITALS: BP 116/62
[2018-02-18] MEDS: DOCUSATE SOD 100 MG CAP PO SCH (10:00)
[2018-02-18] MEDS: ENOXAPARIN SOD 60 MG/0.6 ML SYRINGE SC SCH ×2 (10:00→22:00)
[2018-02-18] MEDS: SOTALOL HCL 80 MG TAB PO SCH ×2 (10:33→22:00)
[2018-02-18] MEDS: ASPirin 81 mg TAB PO SCH (10:34)
[2018-02-18] MEDS: GEMFIBROZIL 600 MG TAB PO SCH ×2 (10:34→22:14)
[2018-02-18] MEDS: FAMOTIDINE (10MG/ML) 2ML VL IV SCH (10:35)
[2018-02-18 12:00] VITALS: BP 134/64
[2018-02-18 16:32] VITALS: BP 161/71
[2018-02-18 22:00] VITALS: BP 145/70
[2018-02-19] MEDS: PIPERACILLIN-TAZOB 3.375GM 100 ML IV SCH ×2 (03:27→06:32)
[2018-02-19 05:00] VITALS: BP 106/62
[2018-02-19] MEDS: InsuLIN REG 1unit/0.01ml Soln (100units/ml) SC SCH ×2 (06:39→12:45)
[2018-02-19] MEDS: ACCU-CHEK COMFORT CURVE STRIP VI SCH ×2 (06:39→12:45)
[2018-02-19 09:00] VITALS: BP 102/57
[2018-02-19] MEDS: FAMOTIDINE (10MG/ML) 2ML VL IV SCH (09:15)
[2018-02-19] MEDS: DOCUSATE SOD 100 MG CAP PO SCH (09:16)
[2018-02-19] MEDS: ASPirin 81 mg TAB PO SCH (09:16)
[2018-02-19] MEDS: SOTALOL HCL 80 MG TAB PO SCH (09:18)
[2018-02-19] MEDS: GEMFIBROZIL 600 MG TAB PO SCH (09:18)
[2018-02-19] MEDS: ENOXAPARIN SOD 60 MG/0.6 ML SYRINGE SC SCH (09:22)
[2018-02-19 12:13] VITALS: BP 102/57
[2018-02-19 13:08] VITALS: BP 139/73
== END 2018-02-19 14:10 | disposition home or self-care (01) | DRG 445 ==
LOC: ER 09:15 → TELE 09:16 → TELE-CENTR 17:05
PROVIDERS: ADMIT Internal Medicine Cardiovascular Disease; ATTEND Internal Medicine Cardiovascular Disease
DX: K80.63 Calculus of gallbladder and bile duct with acute cholecystitis with obstruction (principal); E87.1 Hypo-osmolality and hyponatremia; K40.21 Bilateral inguinal hernia, without obstruction or gangrene, recurrent; N40.0 Benign prostatic hyperplasia without lower urinary tract symptoms; I48.91 Unspecified atrial fibrillation; F17.210 Nicotine dependence, cigarettes, uncomplicated; E78.5 Hyperlipidemia, unspecified; E11.21 Type 2 diabetes mellitus with diabetic nephropathy; I10 Essential (primary) hypertension; I25.10 Atherosclerotic heart disease of native coronary artery without angina pectoris; J44.9 Chronic obstructive pulmonary disease, unspecified; Z95.5 Presence of coronary angioplasty implant and graft; Z90.49 Acquired absence of other specified parts of digestive tract; I25.2 Old myocardial infarction
CPT/HCPCS: 36415; 71046; 71260; 74176; 74181; 80053; 80076; 81001; 82150; 82962; 83690; 83735; 84443; 84484; 85025; 85610; 85730; 86850; 86900; 86901; 93005; 96361; 96365; 96375; A6257; J1815; J2405; J2543; J3480; J3490; J7042; P9047; Q0161

== ENCOUNTER → 2018-02-28 | Outpatient (CLI) | payer BC, MEDICARE ==
[~2018-02-28] MED LIST changes: -ATEN-60 PO
[2018-02-28 12:24] LABS: Basophils # (auto) 0.1 uL; Basophils % (auto) 1.3 % (0.0-2.0); Eosinophils # (auto) 0.4 uL; Eosinophils % (auto) 4.5 % (0.0-7.0); Hematocrit 45.5 % (41.0-53.0); Hemoglobin 15.6 g/dL (13.5-17.5); Lymphocytes # (auto) 2.3 uL; Lymphocytes % (auto) 28.3 % (10.0-50.0); Mean Corpuscular Hgb Conc. 34.3 g/dL (32.0-36.0); Mean Corpuscular Volume 96.2 fL (80.0-100.0); Monocytes # (auto) 0.6 uL; Monocytes % (auto) 7.4 % (0.0-12.0); Neutrophils # (auto) 4.8 uL; Neutrophils % (auto) 58.5 % (37.0-80.0); Nucleated Red Blood Cells % 0.6 %; Platelet Count (auto) 264 10^3/uL (140-450); Red Blood Cells 4.74 10^6/uL (4.5-5.90); Red Cell Distribution Width 15.2 % (11.8-14.3); White Blood Cell 8.1 10^3/uL (4.4-10.8)
[2018-02-28 15:21] LABS: Albumin 2.9 g/dL (3.4-5.0); Calcium 8.4 mg/dL (8.5-10.1); Potassium 4.7 mmol/L (3.5-5.1)
[2018-02-28 15:53] LABS: Bilirubin, Total 1.4 mg/dL (0.2-1.0)
== END | disposition home or self-care (01) ==
LOC: LAB 09:52
PROVIDERS: ATTEND Internal Medicine Cardiovascular Disease
DX: E78.5 Hyperlipidemia, unspecified (principal); I10 Essential (primary) hypertension; K74.1 Hepatic sclerosis; D64.9 Anemia, unspecified
CPT/HCPCS: 36415; 80048; 80061; 80076; 85025

== ENCOUNTER → 2018-03-22 | Outpatient (CLI) | payer BC, MEDICARE ==
[2018-03-22 09:31] LABS: Bilirubin, Direct 0.5 mg/dL (0-0.2); Bilirubin, Total 1.2 mg/dL (0.2-1.0)
== END | disposition home or self-care (01) ==
LOC: LAB 08:50
PROVIDERS: ATTEND Surgery
DX: K85.10 Biliary acute pancreatitis without necrosis or infection (principal); K83.8 Other specified diseases of biliary tract
CPT/HCPCS: 36415; 82150; 82247; 82248; 83690

== ENCOUNTER → 2018-05-15 | Outpatient (CLI) | payer BC, MEDICARE ==
[~2018-05-15] VITALS: Ht 182.9 cm; Wt 81.6 kg
[~2018-05-15] MED LIST changes: +ADENOSINE 69 MG in GIVE UN-DILUTED 0 ML IV ONE; +ADENOSINE 90 MG/30 ML INJ IV ONE
== END | disposition home or self-care (01) ==
LOC: Rad HDHVI 13:05
PROVIDERS: ATTEND Internal Medicine Cardiovascular Disease
DX: Z01.810 Encounter for preprocedural cardiovascular examination (principal); E11.9 Type 2 diabetes mellitus without complications; I73.9 Peripheral vascular disease, unspecified; K80.21 Calculus of gallbladder without cholecystitis with obstruction
CPT/HCPCS: 78452; 93005; 93306; 96374; 96375; A9500; J0153

== ENCOUNTER 2018-06-19 06:07 | Inpatient (IN) | payer BC, MEDICARE ==
[2018-06-17 09:43] LABS: Basophils # (auto) 0.1 uL; Eosinophils # (auto) 0.2 uL; Monocytes # (auto) 0.5 uL; Nucleated Red Blood Cells % 0.3 %; White Blood Cell 7.9 10^3/uL (4.4-10.8)
[2018-06-17 09:45] LABS: Basophils % (auto) 0.9 % (0.0-2.0); Hemoglobin 19.8 g/dL (13.5-17.5); Lymphocytes # (auto) 2.1 uL; Lymphocytes % (auto) 27.1 % (10.0-50.0); Mean Corpuscular Hemoglobin 32.8 pg (28.0-32.0); Mean Corpuscular Volume 93.8 fL (80.0-100.0); Platelet Count (auto) 207 10^3/uL (140-450); Red Blood Cells 6.04 10^6/uL (4.5-5.90); Red Cell Distribution Width 13.6 % (11.8-14.3); Urine Bacteria NONE SEEN /hpf (None Seen); Urine Blood Negative /uL (Negative); Urine Specific Gravity 1.034 (1.001-1.035); Urine WBC 1 /hpf (0 - 3)
[2018-06-17 09:47] LABS: Hematocrit 56.6 % (41.0-53.0)
[2018-06-17 10:01] LABS: Alanine Aminotransferase 37 U/L (16-61); Albumin 3.8 g/dL (3.4-5.0); Anion Gap 8 (5-15); Aspartate Aminotransferase 16 U/L (15-37); BUN/Creatinine Ratio 19.4; Blood Urea Nitrogen 18 mg/dL (7-18); Calcium 9.4 mg/dL (8.5-10.1); Carbon Dioxide 22 mmol/L (21-32); Chloride 106 mmol/L (98-107); GFR African American > 60 mL/min; GFR Non-African American > 60 mL/min; Glucose 264 mg/dL (74-106); INR 0.96 (0.9-1.15); Partial Thromboplastin Time 31.8 sec (23.78-33.04); Potassium 4.2 mmol/L (3.5-5.1); Prothrombin Time 10.3 sec (9.27-12.13); Sodium 136 mmol/L (136-145)
[2018-06-17 10:04] LABS: Alkaline Phosphatase 116 U/L (45-117); Bilirubin, Total 0.7 mg/dL (0.2-1.0); Total Protein 8.1 g/dL (6.4-8.2)
[~2018-06-19] VITALS: Ht 182.9 cm; Wt 81.8 kg
[~2018-06-19 06:07] MED LIST changes: -ADENOSINE 69 MG in GIVE UN-DILUTED 0 ML IV ONE; -ADENOSINE 90 MG/30 ML INJ IV ONE; +GLIP-115 PO; +METO25TA62 PO
[2018-06-19] MEDS ORDERED: ceFAZolin 1GM/50ML 50 ML IV ONE (06:27)
[2018-06-19] MEDS ORDERED: POVIDONE IODINE 10 % TOPICAL OINT 30GM TOP ONE (07:08)
[2018-06-19] MEDS ORDERED: SUCCINYLCHOLINE CHLORIDE 20 MG/ML 10ML VIAL IV ONE (07:57)
[2018-06-19] MEDS ORDERED: NEOSTIGMINE 1 MG/ML INJ (10mg/10ML VIAL) IV ONE (07:59)
[2018-06-19] MEDS ORDERED: GLYCOPYRROLATE 0.2 MG/ML 1ML VIAL IV ONE (07:59)
[2018-06-19] MEDS ORDERED: MIDAZOLAM HCL 1MG/1ML-2 ML VIAL ONE (08:02)
[2018-06-19] MEDS ORDERED: PROPOFOL 10 MG/ML 20 ML IV ONE (08:02)
[2018-06-19] MEDS ORDERED: fentaNYL CITRATE 100 MCG/2 ML VL ONE ×2 (08:02→08:55)
[2018-06-19] MEDS ORDERED: ROCURONIUM 10MG/ML 10ML VIAL IV ONE (08:02)
[2018-06-19] MEDS ORDERED: HYDROmorphone HCL 2 MG/ML VL ONE (09:15)
[2018-06-19] MEDS ORDERED: ONDANSETRON HCL 4 MG/2 ML VIAL IV ONE (09:15)
[2018-06-19] MEDS ORDERED: ePHEDrine SULFATE 50 MG/ML AMP IV PRN (09:15)
[2018-06-19] MEDS ORDERED: ONDANSETRON HCL 4 MG/2 ML VIAL IV PRN (09:15)
[2018-06-19] MEDS ORDERED: hydrOXYzine HCL 25 MG/ML VL IM ONE (09:16)
[2018-06-19] MEDS: HYDROmorphone HCL 2 MG/ML VL IV PRN ×8 (09:18→22:34)
[2018-06-19] MEDS: hydrALAZINE HCL 20 MG/ML VL IV PRN ×2 (09:20→09:40)
[2018-06-19] MEDS ORDERED: LABETALOL HCL 5 MG/ML ML 20ML VIAL IV ONE (09:57)
[2018-06-19] MEDS ORDERED: LABETALOL HCL 5 MG/ML 4ML SYRINGE IV ONE (09:58)
[2018-06-19] MEDS ORDERED: InsuLIN REG 1unit/0.01ml Soln (100units/ml) ONE (11:04)
[2018-06-19] MEDS ORDERED: InsuLIN REG 1unit/0.01ml Soln (100units/ml) IV ONE (11:15)
--- NOTE | 2018-06-19 11:52 | NUR ---
RECEIVED REPORT FROM PATO DAY PT S/P LAPAROSCOPIC CHOLECYSTECTOMY
[2018-06-19] MEDS ORDERED: metFORMIN HYDROCHLORIDE 500 MG TAB PO SCH (12:00)
[2018-06-19] MEDS ORDERED: hydrALAZINE HCL 20 MG/ML VL ONE (12:05)
--- NOTE | 2018-06-19 12:10 | NUR ---
Telemetry admit from OR TACO JHAVERI admitted to Telemetry unit after SBAR received. Patient oriented to Maria Teresa Glynn, primary RN, unit, room, bed, and unit policies regarding patient care and visiting hours. Patient now on continuous telemetry monitoring, tele box # [id number] and telemetry reading on arrival to unit is SINUS RHYTHM 76. Patient placed on bedside oxygen, weighed by bedscale and encouraged to call if they need something. All questions and concerns addressed, patient verbalized understanding. Note: PT IS AWAKE AND ALERT, S/P LAPAROSCOPIC CHOLECYSTECTOMY,MIDLINE ABDOMEN DRESSING CLEAN DRY AND INTACT, RIGHT LOWER ABDOMEN DRESSING NOTED DRESSING SOAK WITH BLOOD IN SMALL AMOUNT, BINDER IN PLACE. WILL CONTINUE TO MONITOR
[2018-06-19 12:30] VITALS: BP 154/78
--- NOTE | 2018-06-19 12:58 | NUR ---
SEEN BY DR. HEDRICK ORDERED DILAUDID 1MG IV ONE DOSE.
[2018-06-19 13:00] VITALS: BP 120/82
[2018-06-19] MEDS ORDERED: DEXTROSE (50%) 50ML SYRG IV PRN (13:00)
[2018-06-19] MEDS ORDERED: HYDROmorphone HCL 2 MG/ML VL IV ONE (13:00)
[2018-06-19] MEDS ORDERED: hydrALAZINE HCL 20 MG/ML VL IV PRN (13:00)
[2018-06-19] MEDS ORDERED: LORazepam 2MG/ML-1ML VIAL IV PRN (13:00)
[2018-06-19] MEDS: SOD CHL 0.45% WITH 20MEQ KCL 1,000 ML IV SCH ×2 (13:35→17:35)
--- NOTE | 2018-06-19 13:35 | NUR ---
Dressing noted VALENCIA drain dressing soaked with blood, dressing changed, will continue to monitor.
[2018-06-19] MEDS: GEMFIBROZIL 600 MG TAB PO SCH ×2 (13:36→22:14)
[2018-06-19] MEDS: ceFAZolin 1GM/50ML 50 ML IV SCH ×2 (14:22→22:14)
[2018-06-19 17:00] VITALS: BP 163/83
--- NOTE | 2018-06-19 17:17 | NUR ---
ELEVATED BP BP 163/63MMHG, DR. RAYMOND NOTIFIED HYDRALAZINE IS BACK ORDER AND PT HAS NO OTHER BP MEDICATION PRN. Addendum: 06/19/18 at 1740 by Maria Teresa Glynn RN DR. RAYMOND ORDERED CLONIDINE 0.2MG PO TID PRN.
[2018-06-19] MEDS: ACCU-CHEK COMFORT CURVE STRIP VI SCH (18:13)
[2018-06-19] MEDS: InsuLIN REG 1unit/0.01ml Soln (100units/ml) SC SCH (18:14)
[2018-06-19] MEDS: cloNIDine HCL 0.1 MG TAB PO PRN (18:30)
--- NOTE | 2018-06-19 18:49 | NUR ---
VALENCIA DRAIN TOTAL OUTPUT 265ML SANGUINEOUS FLUID
--- NOTE | 2018-06-19 19:55 | NUR ---
OPENING SHIFT NOTE RECEIVED REPORT FROM DAYSHIFT RN. PATIENT RESTING COMFORTABLY IN BED WATCHING TELEVISION. NO S/S OF DISTRESS OR SOB. NO PAIN REPORTED AT THIS TIME. PT A/O X4. 2 MIDLINE ABDOMINAL INCISIONS CLEAN, DRY, AND INTACT. VALENCIA DRAIN IN PLACE, DRESSING CLEAN, DRY, AND INTACT. ABDOMINAL BINDER IN PLACE, PATIENT TOLERATING WELL. PATIENT UPDATED ON POC, VERBALIZED UNDERSTANDING. BED LOCKED IN LOW POSITION, CALL LIGHT WITHIN REACH, WILL CONTINUE TO MONITOR PATIENT Q1HR AND PRN.
[2018-06-19 22:00] VITALS: BP 161/95
[2018-06-19] MEDS: INSULIN LANTUS (GLARGINE) 1 /0.01ml (100units/ml) SC SCH (22:26)
[2018-06-20] MEDS: ACCU-CHEK COMFORT CURVE STRIP VI SCH ×4 (00:15→17:57)
[2018-06-20] MEDS: InsuLIN REG 1unit/0.01ml Soln (100units/ml) SC SCH ×4 (00:16→17:58)
[2018-06-20] MEDS: SOD CHL 0.45% WITH 20MEQ KCL 1,000 ML IV SCH ×3 (00:21→17:04)
[2018-06-20] MEDS: HYDROmorphone HCL 2 MG/ML VL IV PRN ×3 (04:02→18:09)
[2018-06-20 05:44] VITALS: BP 143/84
[2018-06-20] MEDS: ceFAZolin 1GM/50ML 50 ML IV SCH ×3 (06:10→21:52)
[2018-06-20 06:58] LABS: Basophils # (auto) 0.1 uL; Basophils % (auto) 0.5 % (0.0-2.0); Eosinophils # (auto) 0.1 uL; Eosinophils % (auto) 0.4 % (0.0-7.0); Hematocrit 47.4 % (41.0-53.0); Hemoglobin 16.4 g/dL (13.5-17.5); Mean Corpuscular Hemoglobin 32.7 pg (28.0-32.0); Mean Corpuscular Hgb Conc. 34.6 g/dL (32.0-36.0); Mean Corpuscular Volume 94.7 fL (80.0-100.0); Monocytes # (auto) 1.4 uL; Neutrophils % (auto) 77.1 % (37.0-80.0); Nucleated Red Blood Cells % 0.1 %; Platelet Count (auto) 186 10^3/uL (140-450); Red Cell Distribution Width 13.7 % (11.8-14.3); White Blood Cell 15.5 10^3/uL (4.4-10.8)
[2018-06-20 07:16] LABS: Albumin 3.2 g/dL (3.4-5.0); Anion Gap 4 (5-15); Blood Urea Nitrogen 18 mg/dL (7-18); Calcium 8.5 mg/dL (8.5-10.1); Carbon Dioxide 26 mmol/L (21-32); Chloride 106 mmol/L (98-107); Glucose 177 mg/dL (74-106); Potassium 4.4 mmol/L (3.5-5.1); Sodium 136 mmol/L (136-145)
[2018-06-20 07:21] LABS: Alanine Aminotransferase 59 U/L (16-61); Alkaline Phosphatase 85 U/L (45-117); Aspartate Aminotransferase 63 U/L (15-37); BUN/Creatinine Ratio 17.8; GFR African American > 60 mL/min; GFR Non-African American > 60 mL/min; Total Protein 6.7 g/dL (6.4-8.2)
[2018-06-20] MEDS: cloNIDine HCL 0.1 MG TAB PO PRN (08:12)
[2018-06-20 08:23] VITALS: BP 164/79
[2018-06-20] MEDS: PANTOPRAZOLE 40 MG/10 ML VIAL IV SCH (09:10)
[2018-06-20] MEDS: GEMFIBROZIL 600 MG TAB PO SCH ×2 (09:12→21:53)
[2018-06-20] MEDS: ASPirin 81 mg TAB PO SCH (10:00)
--- NOTE | 2018-06-20 10:25 | NUR ---
PT AMBULATED IN THE HALLWAY, TOLERATED IT WELL.
--- NOTE | 2018-06-20 11:16 | NUR ---
DR. THOMSON AT BEDSIDE PT COMPLAINING OF SHORTNESS BREATH. DR. THOMSON ORDERED CHEST XRAY, ABG AND BREATHING TREATMENT. Addendum: 06/20/18 at 1143 by Maria Teresa Glynn RN DR. THOMSON AWARE VALENCIA IS DRAINING BRIGHT RED DRAINAGE, PT IS NOT PASSING GAS AND NO BOWEL MOVEMENT, HE SAID TO KEEP PT ON CLEAR LIQUID DIET AND KEEP PT ONE MORE DAY.
[2018-06-20] MEDS ORDERED: ALBUTEROL SULF 2.5 MG/0.5ML(0.5%) NEB SOLN NEB PRN (11:30)
--- NOTE | 2018-06-20 11:43 | NUR ---
DR RAYMOND NOTIFIED I HELD ASPIRIN DUE TO BRIGHT RED VALENCIA DRAINAGE.
[2018-06-20 12:54] VITALS: BP 154/81
--- NOTE | 2018-06-20 14:35 | NUR ---
PT AMBULATED IN THE HALLWAY, PT TOLERATED IT WELL.
[2018-06-20 16:27] VITALS: BP 147/76
--- NOTE | 2018-06-20 17:28 | NUR ---
VALENCIA DRAINAGE TOTAL VALENCIA DRAIN OUTPUT 60ML BRIGHT RED DRAINAGE.
--- NOTE | 2018-06-20 18:21 | NUR ---
PRN MED NEB ASSESSMENT. PT DENIES SOB. NO DISTRESS NOTED AT THIS TIME. POX IS 95% ON RA HR 80 RR 18 BS ARE CLEAR AND DIMINISHED. TX NOT GIVEN.
[2018-06-20] MEDS ORDERED: FUROSEMIDE 40 MG/4 ML VIAL IV ONE (19:30)
[2018-06-20 19:45] VITALS: BP 147/76
[2018-06-20] MEDS: INSULIN LANTUS (GLARGINE) 1 /0.01ml (100units/ml) SC SCH (21:53)
[2018-06-21] MEDS: InsuLIN REG 1unit/0.01ml Soln (100units/ml) SC SCH ×5 (00:28→22:13)
[2018-06-21] MEDS: ACCU-CHEK COMFORT CURVE STRIP VI SCH ×5 (00:28→22:13)
[2018-06-21] MEDS: SOD CHL 0.45% WITH 20MEQ KCL 1,000 ML IV SCH ×4 (00:33→22:13)
[2018-06-21] MEDS: HYDROmorphone HCL 2 MG/ML VL IV PRN ×4 (00:33→21:08)
[2018-06-21 05:30] VITALS: BP 148/89
[2018-06-21] MEDS: ceFAZolin 1GM/50ML 50 ML IV SCH ×3 (05:46→22:12)
--- NOTE | 2018-06-21 06:00 | NUR ---
VALENCIA DRAINAGE EMPTIED A TOTAL OF 90ML OF SANGUINEOUS FLUID FROM VALENCIA.
--- NOTE | 2018-06-21 08:00 | NUR ---
RECEIVED PATIENT ALERT AND ORIENTED X4, NOT IN DISTRESS, CLEAR LUNG SOUNDS IN BILATERAL LUNG LOBES, DEMONSTRATING INCENTIVE SPIROMETER WELL, RR=18 SAT=98% RA, SR R=98 ON TELE MONITOR, DENIED CHEST AT THIS MOMENT, ON CLEAR LIQUID ORDERED, MID UPPER ABDOMEN AND RT.SURGICAL SITES COVERED WITH DRY AND INTACT DRESSING, RT. LOWER ABDOMEN VALENCIA IN PLACE PATIENT SITE DRY AND INTACT DRAINING DARK SANGUINOUS, ABDOMEN SOFT WITH ACTIVE BS, PASSING GAS REPORTED, LAST BM=06/18/18 REPORTED, TOLERATING ABDOMINAL BINDER WELL, SKIN INTACT WARM TO TOUCH, RESTING ON BED, HEAD OF BED ELEVATED HEAD ON LOWER POSITION, RAILS UP X2, CALL LIGHT ON REACH, FAMILY AT BED SIDE, WILL CONTINUE MONITORING.
[2018-06-21 09:00] VITALS: BP 143/91
--- NOTE | 2018-06-21 09:00 | NUR ---
OUT OF BED, AMBULATED AROUND THE UNIT X2, TOLERATED WELL, BACK TO BED SITTING AND TALKING TO THE .
[2018-06-21] MEDS: ASPirin 81 mg TAB PO SCH (10:53)
[2018-06-21] MEDS: PANTOPRAZOLE 40 MG/10 ML VIAL IV SCH (10:53)
[2018-06-21] MEDS: GEMFIBROZIL 600 MG TAB PO SCH ×2 (10:54→22:12)
[2018-06-21 12:30] LABS: Basophils # (auto) 0.1 uL; Basophils % (auto) 0.8 % (0.0-2.0); Eosinophils # (auto) 0.1 uL; Eosinophils % (auto) 0.8 % (0.0-7.0); Hematocrit 45.4 % (41.0-53.0); Hemoglobin 15.6 g/dL (13.5-17.5); Lymphocytes # (auto) 1.6 uL; Lymphocytes % (auto) 11.7 % (10.0-50.0); Mean Corpuscular Hemoglobin 32.6 pg (28.0-32.0); Mean Corpuscular Hgb Conc. 34.5 g/dL (32.0-36.0); Mean Corpuscular Volume 94.6 fL (80.0-100.0); Monocytes % (auto) 7.7 % (0.0-12.0); Neutrophils # (auto) 10.7 uL; Nucleated Red Blood Cells % 0.1 %; Platelet Count (auto) 169 10^3/uL (140-450); Red Cell Distribution Width 13.5 % (11.8-14.3); White Blood Cell 13.5 10^3/uL (4.4-10.8)
[2018-06-21 13:00] VITALS: BP 125/81
--- NOTE | 2018-06-21 14:00 | NUR ---
NOT IN DISTRESS, DENIED PAIN, AT BED SIDE ALL DAY, DARK SANGUINOUS VALENCIA OUT PUT =95CC NOTED.
[2018-06-21 17:00] VITALS: BP 149/82
--- NOTE | 2018-06-21 18:41 | NUR ---
SITTING ON BED AND EATING DINNER, TOLERATING WELL, NOT IN DISTRESS, DENIED PAIN, WILL CONTINUE MONITORING.
--- NOTE | 2018-06-21 19:16 | NUR ---
NOT IN DISTRESS, DENIED PAIN, REPORT WAS GIVEN TO THE DETECTIVE PRECINCT RN.
--- NOTE | 2018-06-21 20:00 | NUR ---
Opening Shift Note Assumed care of patient, awake and alert, oriented x4. No S/S of distress/SOB or pain. Abdl dsgs clean, dry, intact. VALENCIA draining sanguinous fluid. Encouraged use of IS. Instructed on POC, verbalized understanding. Side rails up x2, bed in lowest locked position, non skid socks on. Instructed to call for assist PRN, call light within reach, will continue to monitor for changes Q1hr and PRN.
[2018-06-21 22:00] VITALS: BP 137/79
[2018-06-21] MEDS: INSULIN LANTUS (GLARGINE) 1 /0.01ml (100units/ml) SC SCH (22:12)
[2018-06-22] MEDS: SOD CHL 0.45% WITH 20MEQ KCL 1,000 ML IV SCH ×2 (00:59→06:44)
--- NOTE | 2018-06-22 03:05 | NUR ---
AMBULATE PT AMBULATING ALONG HALLWAY, NON SKID SOCKS ON. TOLERATING WELL. CONTINUE CARE.
[2018-06-22] MEDS: HYDROmorphone HCL 2 MG/ML VL IV PRN (04:00)
--- NOTE | 2018-06-22 04:19 | NUR ---
REPORT GIVEN TO IMSA WHYTE.
--- NOTE | 2018-06-22 04:20 | NUR ---
REPORT REPORT RECEIVED FROM [place], PATIENT RESTING IN BED NO DISTRESS NOTED, BED IN LOWEST POSITION, SIDE RAILS UP X2 CALL LIGHT WITHIN REACH. WILL CONTINUE TO MONITOR AND INITIATE POC.
[2018-06-22 05:36] VITALS: BP 150/81
[2018-06-22] MEDS: ACCU-CHEK COMFORT CURVE STRIP VI SCH (06:15)
[2018-06-22] MEDS: ceFAZolin 1GM/50ML 50 ML IV SCH (06:16)
[2018-06-22] MEDS: InsuLIN REG 1unit/0.01ml Soln (100units/ml) SC SCH (06:16)
--- NOTE | 2018-06-22 06:45 | NUR ---
AMBULATING PATIENT AMBULATING TO RESTROOM, PATIENT STATED HE STILL HAS NOT HAS A BM BUT IS PASSING A LOT OF GAS. ABD BNDER IN PLACE, VALENCIA INTACT WITH MINIMAL OUTPUT. GAIT STEADY AND STABLE. NO DISTRESS NOTED, LAST PAIN MEDICATION GIVEN AT 04:00 AND PAIN IS TOLERABLE AT THIS TIME. ENCOURAGED PATIENT TO CALL FOR ASSISTANCE IF HE NEEDS ANYTHING. BED IN LOWEST POSITION, SIDE RAILS UP X2, CALL LIGHT WITHIN REACH. WILL CONTINUE TO MONITOR.
--- NOTE | 2018-06-22 07:49 | NUR ---
ALIX PAGED DR THOMSON FOR UPDATE ON DISCHARGE PLANNING, PER DR THOMSON PATIENT CAN GO HOME TODAY AND FOLLOW UP IN 2 WEEKS.
--- NOTE | 2018-06-22 07:54 | NUR ---
PT. ASSESSED FOR PRN. MN. TX., PT. IS SITTING UP AT THE BEDSIDE GETTING READY TO EAT BREAKFAST. BS. ARE CLEAR AND DIMINISHED BILAT. ,HR=86,RR=20,SP02=95% ON RA. , PT. STATES HE DOESN'T NEED ONE AT THIS TIME, AND PT. IS AWARE HE MAY CALL IF HE NEEDS ONE LATER. NO TX. GIVEN.
--- NOTE | 2018-06-22 07:54 | NUR ---
MANDI RAYMOND UPDATED ON SURGICAL CLEARANCE FOR DISCHARGE, PER DR RAYMOND PATIENT TO GO HOME TODAY.
--- NOTE | 2018-06-22 08:20 | NUR ---
IV removal IV DC'd with clean sterile technique, catheter fully intact. Pressure dressing applied to site. Patient tolerated well. TELE CLEANED AND RETURNED TO [employer]. NOTE:
--- NOTE | 2018-06-22 09:10 | NUR ---
RX PATIENT ASKING FOR NORCO PRESCRIPTION, PATIENT STATED "INCASE I NEED IT." PAGE OUT TO DR RAYMOND, WAITING FOR CALL BACK.
--- NOTE | 2018-06-22 10:00 | NUR ---
PATIENT NOT WANTING TO WAIT ANY LONGER AND STATED HE IS READY TO LEAVE WITHOUT WAITING FOR MD TO SEE ABOUT GETTING PRESCRIPTION FOR PAIN.
== END 2018-06-22 10:23 | disposition home or self-care (01) | DRG 419 ==
LOC: SUR 06:07 → TELE-CENTR 12:49
PROVIDERS: ADMIT Surgery; ATTEND Internal Medicine Cardiovascular Disease
PROC: 0DNU4ZZ Release Omentum, Percutaneous Endoscopic Approach (ICD-10-PCS; 2018-06-19)
PROC: 0FT44ZZ Resection of Gallbladder, Percutaneous Endoscopic Approach (ICD-10-PCS; principal; 2018-06-19 07:59)
DX: K80.64 Calculus of gallbladder and bile duct with chronic cholecystitis without obstruction (principal); D75.1 Secondary polycythemia; E11.51 Type 2 diabetes mellitus with diabetic peripheral angiopathy without gangrene; E66.9 Obesity, unspecified; F17.210 Nicotine dependence, cigarettes, uncomplicated; I10 Essential (primary) hypertension; I25.10 Atherosclerotic heart disease of native coronary artery without angina pectoris; K66.0 Peritoneal adhesions (postprocedural) (postinfection); K21.9 Gastro-esophageal reflux disease without esophagitis; Z95.5 Presence of coronary angioplasty implant and graft; Z95.820 Peripheral vascular angioplasty status with implants and grafts; Z79.899 Other long term (current) drug therapy; Z79.82 Long term (current) use of aspirin; Z68.24 Body mass index [BMI] 24.0-24.9, adult
CPT/HCPCS: 36415; 36600; 71045; 80053; 81001; 82805; 82962; 83036; 85025; 85610; 85730; 86850; 86900; 86901; A6257; C9113; G0378; J0330; J0690; J1815; J2250; J2405; J2704; J3490

== ENCOUNTER → 2018-06-26 | Outpatient (CLI) | payer BC, MEDICARE ==
[2018-06-26 15:51] LABS: Urine Blood Negative /uL (Negative); Urine Specific Gravity 1.039 (1.001-1.035)
[2018-06-26 15:52] LABS: Basophils # (auto) 0.1 uL; Basophils % (auto) 0.6 % (0.0-2.0); Eosinophils # (auto) 0.1 uL; Eosinophils % (auto) 0.8 % (0.0-7.0); Hematocrit 46.9 % (41.0-53.0); Hemoglobin 16.1 g/dL (13.5-17.5); Lymphocytes # (auto) 2.3 uL; Lymphocytes % (auto) 14.9 % (10.0-50.0); Mean Corpuscular Hemoglobin 32.4 pg (28.0-32.0); Mean Corpuscular Hgb Conc. 34.2 g/dL (32.0-36.0); Mean Corpuscular Volume 94.6 fL (80.0-100.0); Monocytes # (auto) 1.6 uL; Neutrophils # (auto) 11.5 uL; Neutrophils % (auto) 73.7 % (37.0-80.0); Nucleated Red Blood Cells % 0.2 %; Platelet Count (auto) 357 10^3/uL (140-450); Red Blood Cells 4.96 10^6/uL (4.5-5.90); Red Cell Distribution Width 13.7 % (11.8-14.3); White Blood Cell 15.5 10^3/uL (4.4-10.8)
[2018-06-26 16:17] LABS: BUN/Creatinine Ratio 16.7; Bilirubin, Total 0.8 mg/dL (0.2-1.0); Calcium 9.2 mg/dL (8.5-10.1); Total Protein 7.9 g/dL (6.4-8.2)
[2018-06-26 16:58] LABS: Albumin 2.6 g/dL (3.4-5.0)
[2018-06-26 19:41] LABS: Potassium 3.9 mmol/L (3.5-5.1)
== END | disposition home or self-care (01) ==
LOC: LAB 11:47
PROVIDERS: ATTEND Internal Medicine Cardiovascular Disease
DX: D64.9 Anemia, unspecified (principal); I10 Essential (primary) hypertension; N39.0 Urinary tract infection, site not specified
CPT/HCPCS: 36415; 80053; 81003; 85025; 87086

== ENCOUNTER → 2018-07-03 | Outpatient (CLI) | payer BC, MEDICARE ==
[~2018-07-03] MED LIST changes: +IOHEXOL 350 MG/ML 100ML IJ ONE; +READI-CAT 2 (BARIUM SULF)(VANILLA SMOOTHIE) 450ML ONE
[2018-07-03 12:35] VITALS: BP 134/77
--- NOTE | 2018-07-03 12:35 | NUR ---
PATIENT GETTING CT WITH CONTRAST, PATIENT TAKING METFORM. PATIENT EDUCATED TO WITHHOLD METFORMIN FOR 48 HRS AFTER CONTRAST, PATIENT VERBALIZED UNDERSTANDING. PATIENT GIVEN EDUCATION HANDOUT ABOUT HOLDING METFORMIN FOR 48HRS TO TAKE HOME.
--- NOTE | 2018-07-03 12:45 | NUR ---
IV insertion IV access obtained, via clean sterile technique by inserting 22 gauge catheter at LAC after 1 attempt(s). IV secured properly. No trauma to site. Patient tolerated procedure well.
[2018-07-03 13:50] VITALS: BP 138/69
--- NOTE | 2018-07-03 13:50 | NUR ---
CHF IV removal IV DC'd with sterile technique, catheter fully intact. Pressure dressing applied to site. Patient tolerated procedure well. HOLD METFORMIN X 48 HR, INCREASE H20 INTAKE TO AID IN CONTRAST CLEARANCE. Discharged with aftercare instructions per .F/U WITH DR. RAYMOND INSTRUCTED. NOTE:
== END | disposition home or self-care (01) ==
LOC: Rad HDHVI 12:32
PROVIDERS: ATTEND Internal Medicine Cardiovascular Disease
DX: K86.1 Other chronic pancreatitis (principal); Z90.49 Acquired absence of other specified parts of digestive tract
CPT/HCPCS: 74177; 82565; G0463; Q9967

== ENCOUNTER → 2019-04-22 | Outpatient (CLI) | payer BC ==
[~2019-04-22] MED LIST changes: -GLIP-115 PO; +GLIP5TAB12 PO; -IOHEXOL 350 MG/ML 100ML IJ ONE; -READI-CAT 2 (BARIUM SULF)(VANILLA SMOOTHIE) 450ML ONE
== END | disposition home or self-care (01) ==
LOC: Rad HDHVI 08:06
PROVIDERS: ATTEND Internal Medicine Cardiovascular Disease
DX: I11.0 Hypertensive heart disease with heart failure (principal); I50.9 Heart failure, unspecified; I42.0 Dilated cardiomyopathy; R00.2 Palpitations
CPT/HCPCS: 93306

== ENCOUNTER → 2019-05-26 | Outpatient (CLI) | payer BC ==
[~2019-05-26] VITALS: Ht 182.9 cm; Wt 74.8 kg
[~2019-05-26] MED LIST changes: +ADENOSINE 63 MG in GIVE UN-DILUTED 0 ML IV ONE; +ADENOSINE 90 MG/30 ML INJ IV ONE; -METO25TA62 PO; +METO25TA93 PO
[2019-05-26 12:07] LABS: Basophils # (auto) 0.1 uL; Basophils % (auto) 1.7 % (0.0-2.0); Eosinophils # (auto) 0.2 uL; Eosinophils % (auto) 3.5 % (0.0-7.0); Hematocrit 51.4 % (41.0-53.0); Hemoglobin 17.6 g/dL (13.5-17.5); Lymphocytes # (auto) 2.3 uL; Lymphocytes % (auto) 33.5 % (10.0-50.0); Mean Corpuscular Hemoglobin 32.1 pg (28.0-32.0); Mean Corpuscular Hgb Conc. 34.2 g/dL (32.0-36.0); Mean Corpuscular Volume 93.9 fL (80.0-100.0); Monocytes # (auto) 0.6 uL; Monocytes % (auto) 9.3 % (0.0-12.0); Neutrophils # (auto) 3.5 uL; Platelet Count (auto) 273 10^3/uL (140-450); Red Blood Cells 5.48 10^6/uL (4.5-5.90); Red Cell Distribution Width 14.2 % (11.8-14.3); White Blood Cell 6.8 10^3/uL (4.4-10.8)
[2019-05-26 12:13] LABS: Potassium 3.9 mmol/L (3.5-5.1)
[2019-05-26 12:17] LABS: Free T4 (Free Thyroxine) 0.89 ng/dL (0.89-1.76); Prostate Specific Antigen 1.46 ng/mL (0.0-4.0)
[2019-05-26 12:20] LABS: Albumin 3.4 g/dL (3.4-5.0); BUN/Creatinine Ratio 16.7; Bilirubin, Total 0.3 mg/dL (0.2-1.0); Calcium 9.4 mg/dL (8.5-10.1)
[2019-05-26 15:50] LABS: Urine Blood Negative /uL (Negative); Urine Specific Gravity 1.028 (1.001-1.035)
== END | disposition home or self-care (01) ==
LOC: Rad HDHVI 09:26
PROVIDERS: ATTEND Internal Medicine Cardiovascular Disease
DX: Z00.00 Encounter for general adult medical examination without abnormal findings (principal); E03.9 Hypothyroidism, unspecified; K90.9 Intestinal malabsorption, unspecified; E29.1 Testicular hypofunction; E11.9 Type 2 diabetes mellitus without complications; C61 Malignant neoplasm of prostate; N39.0 Urinary tract infection, site not specified; D51.9 Vitamin B12 deficiency anemia, unspecified; Z79.899 Other long term (current) drug therapy
CPT/HCPCS: 36415; 78452; 80053; 80061; 81003; 82306; 82607; 83036; 84153; 84403; 84439; 84443; 85025; 93005; 96374; 96375; A9500; J0153

== ENCOUNTER → 2020-01-16 | Outpatient (CLI) | payer MEDICARE, BC ==
[~2020-01-16] MED LIST changes: -ADENOSINE 63 MG in GIVE UN-DILUTED 0 ML IV ONE; -ADENOSINE 90 MG/30 ML INJ IV ONE
== END | disposition home or self-care (01) ==
LOC: LAB 12:48
PROVIDERS: ATTEND Internal Medicine Cardiovascular Disease
DX: R94.4 Abnormal results of kidney function studies (principal)
CPT/HCPCS: 36415; 82565

== ENCOUNTER → 2020-01-19 | Outpatient (CLI) | payer MEDICARE, BC ==
[~2020-01-19] MED LIST changes: +IOHEXOL 350 MG/ML 100ML IJ ONE; +READI-CAT 2 (BARIUM SULF)(VANILLA SMOOTHIE) 450ML ONE
--- NOTE | 2020-01-19 09:25 | NUR ---
PT. TO CLINIC FOR CT ABD/PELVIS WITH CONTRAST PER DR RAYMOND. LABS OF 01/15 REVIEWED WITH PT., WNL.ORDERS RECEIVED AND CARRIED OUT.
[2020-01-19 09:30] VITALS: BP 136/75
--- NOTE | 2020-01-19 09:30 | NUR ---
IV insertion IV access obtained, via clean sterile technique by inserting 22 gauge catheter at after attempt(s). IV secured properly. No trauma to site. Patient tolerated procedure well.
--- NOTE | 2020-01-19 10:00 | NUR ---
PT. TO AND FROM CT. TOLERATED PROCEDURE WELL, WITH NO C/O. TAKING PO FLUIDS.
[2020-01-19 10:15] VITALS: BP 147/71
--- NOTE | 2020-01-19 10:15 | NUR ---
IV removal IV DC'd with sterile technique, catheter fully intact. Pressure dressing applied to site. Patient tolerated procedure well. Discharged with aftercare instructions per MD. NOTE: PT. INSTRUCTED TO INCREASE FLUID INTAKE FOR NEXT 24 HRS.
== END | disposition home or self-care (01) ==
LOC: Rad HDHVI 09:14
PROVIDERS: ATTEND Internal Medicine Cardiovascular Disease
DX: K40.90 Unilateral inguinal hernia, without obstruction or gangrene, not specified as recurrent (principal); I70.0 Atherosclerosis of aorta; I70.8 Atherosclerosis of other arteries; R63.4 Abnormal weight loss; Z90.49 Acquired absence of other specified parts of digestive tract
CPT/HCPCS: 74177; G0463; Q9967

== ENCOUNTER → 2020-06-04 | Outpatient (CLI) | payer MEDICARE, BC ==
[~2020-06-04] MED LIST changes: -IOHEXOL 350 MG/ML 100ML IJ ONE; -READI-CAT 2 (BARIUM SULF)(VANILLA SMOOTHIE) 450ML ONE
[2020-06-04 12:17] LABS: Basophils # (auto) 0.1 10 ^3/uL (0-0.2); Monocytes # (auto) 0.5 10 ^3/uL (0-1.3); Neutrophils # (auto) 4.6 10 ^3/uL (1.6-8.6)
[2020-06-04 12:19] LABS: Basophils % (auto) 1.2 % (0.0-2.0); Eosinophils # (auto) 0.3 10 ^3/uL (0-0.8); Eosinophils % (auto) 3.4 % (0.0-7.0); Hematocrit 53.9 % (41.0-53.0); Hemoglobin 18.4 g/dL (13.5-17.5); Lymphocytes # (auto) 2.3 10 ^3/uL (0.4-5.4); Lymphocytes % (auto) 29.5 % (10.0-50.0); Mean Corpuscular Hemoglobin 32.2 pg (28.0-32.0); Mean Corpuscular Volume 94.6 fL (80.0-100.0); Neutrophils % (auto) 58.9 % (37.0-80.0); Nucleated Red Blood Cells % 0.6 %; Platelet Count (auto) 205 10^3/uL (140-450); Red Cell Distribution Width 14.4 % (11.8-14.3); White Blood Cell 7.7 10^3/uL (4.4-10.8)
[2020-06-04 12:26] LABS: Prostate Specific Antigen 1.23 ng/mL (0.0-4.0)
[2020-06-04 12:30] LABS: Urine Blood Negative /uL (Negative)
[2020-06-04 12:40] LABS: BUN/Creatinine Ratio 18.4; Bilirubin, Total 0.8 mg/dL (0.2-1.0); Calcium 9.3 mg/dL (8.5-10.1); Total Protein 8.2 g/dL (6.4-8.2)
== END | disposition home or self-care (01) ==
LOC: LAB 08:10
PROVIDERS: ATTEND Internal Medicine Cardiovascular Disease
DX: C61 Malignant neoplasm of prostate (principal); D51.3 Other dietary vitamin B12 deficiency anemia; I10 Essential (primary) hypertension; E11.9 Type 2 diabetes mellitus without complications; E55.9 Vitamin D deficiency, unspecified; R00.2 Palpitations; R53.1 Weakness; R30.0 Dysuria
CPT/HCPCS: 36415; 80053; 80061; 81003; 82306; 82607; 83036; 84153; 84403; 84439; 84443; 85025

== ENCOUNTER → 2021-02-22 | Outpatient (CLI) | payer MEDICARE, BC ==
[~2021-02-22] MED LIST changes: -CLOP75TA41 PO; +CLOP75TA70 PO; +GEMF-19 PO; -GEMF600T7 PO
[2021-02-22 11:27] LABS: Urine Blood Negative /uL (Negative); Urine Specific Gravity 1.022 (1.001-1.035)
[2021-02-22 11:37] LABS: Albumin 3.5 g/dL (3.4-5.0); Potassium 4.1 mmol/L (3.5-5.1)
[2021-02-22 11:45] LABS: Bilirubin, Total 0.7 mg/dL (0.2-1.0); Calcium 9.1 mg/dL (8.5-10.1); Total Protein 7.4 g/dL (6.4-8.2)
[2021-02-22 11:47] LABS: Free T4 (Free Thyroxine) 1.02 ng/dL (0.89-1.76)
[2021-02-22 11:48] LABS: Prostate Specific Antigen 1.27 ng/mL (0.0-4.0)
[2021-02-22 11:53] LABS: Basophils # (auto) 0.1 10 ^3/uL (0-0.2); Basophils % (auto) 0.9 % (0.0-2.0); Eosinophils # (auto) 0.2 10 ^3/uL (0-0.8); Monocytes # (auto) 0.5 10 ^3/uL (0-1.3); Neutrophils # (auto) 4.7 10 ^3/uL (1.6-8.6)
[2021-02-22 11:56] LABS: Eosinophils % (auto) 2.4 % (0.0-7.0); Hematocrit 51.1 % (41.0-53.0); Hemoglobin 17.6 g/dL (13.5-17.5); Lymphocytes # (auto) 2.3 10 ^3/uL (0.4-5.4); Lymphocytes % (auto) 29.8 % (10.0-50.0); Mean Corpuscular Hemoglobin 32.2 pg (28.0-32.0); Mean Corpuscular Hgb Conc. 34.5 g/dL (32.0-36.0); Mean Corpuscular Volume 93.2 fL (80.0-100.0); Monocytes % (auto) 6.8 % (0.0-12.0); Neutrophils % (auto) 60.1 % (37.0-80.0); Nucleated Red Blood Cells % 0.4 %; Red Blood Cells 5.49 10^6/uL (4.5-5.90); White Blood Cell 7.8 10^3/uL (4.4-10.8)
== END | disposition home or self-care (01) ==
LOC: LAB 08:28
PROVIDERS: ATTEND Internal Medicine Cardiovascular Disease
DX: C61 Malignant neoplasm of prostate (principal); D51.3 Other dietary vitamin B12 deficiency anemia; I10 Essential (primary) hypertension; E11.9 Type 2 diabetes mellitus without complications; E55.9 Vitamin D deficiency, unspecified; D64.9 Anemia, unspecified; R00.2 Palpitations; R53.1 Weakness; R30.0 Dysuria
CPT/HCPCS: 36415; 80053; 80061; 81003; 82306; 82607; 83036; 84153; 84403; 84439; 84443; 85025

== ENCOUNTER → 2022-01-24 | Outpatient (CLI) | payer MEDICARE, BC ==
[~2022-01-24] MED LIST changes: -ASPI-231 PO; +ASPI1TAB20 PO
== END | disposition home or self-care (01) ==
LOC: Rad HDHVI 08:53
PROVIDERS: ATTEND Internal Medicine Cardiovascular Disease
DX: I35.0 Nonrheumatic aortic (valve) stenosis (principal); R06.02 Shortness of breath; I10 Essential (primary) hypertension
CPT/HCPCS: 93306

== ENCOUNTER → 2022-02-01 | Outpatient (CLI) | payer MEDICARE, BC | END | disposition home or self-care (01) | LOC: Rad HDHVI 15:46 | PROVIDERS: ATTEND Internal Medicine Cardiovascular Disease | DX: I65.23 Occlusion and stenosis of bilateral carotid arteries (principal); R07.89 Other chest pain; E78.5 Hyperlipidemia, unspecified | CPT/HCPCS: 93880 ==

== ENCOUNTER → 2022-02-13 | Outpatient (CLI) | payer MEDICARE, BC ==
[~2022-02-13] VITALS: Ht 182.9 cm; Wt 74.8 kg
[~2022-02-13] MED LIST changes: +ADENOSINE 63 MG in GIVE UN-DILUTED 0 ML IV ONE; +ADENOSINE 90 MG/30 ML INJ IV ONE
[2022-02-13 11:57] LABS: Basophils # (auto) 0.1 10 ^3/uL (0-0.2); Basophils % (auto) 1.1 % (0.0-2.0); Eosinophils # (auto) 0.2 10 ^3/uL (0-0.8); Hematocrit 52.9 % (41.0-53.0); Hemoglobin 18.1 g/dL (13.5-17.5); Lymphocytes # (auto) 2.1 10 ^3/uL (0.4-5.4); Lymphocytes % (auto) 25.2 % (10.0-50.0); Mean Corpuscular Hemoglobin 31.9 pg (28.0-32.0); Mean Corpuscular Hgb Conc. 34.2 g/dL (32.0-36.0); Mean Corpuscular Volume 93.3 fL (80.0-100.0); Monocytes # (auto) 0.5 10 ^3/uL (0-1.3); Monocytes % (auto) 5.9 % (0.0-12.0); Neutrophils # (auto) 5.3 10 ^3/uL (1.6-8.6); Neutrophils % (auto) 64.8 % (37.0-80.0); Nucleated Red Blood Cells % 0.2 %; Red Blood Cells 5.66 10^6/uL (4.5-5.90); Red Cell Distribution Width 13.8 % (11.8-14.3); White Blood Cell 8.2 10^3/uL (4.4-10.8)
[2022-02-13 11:58] LABS: Urine Blood Negative /uL (Negative); Urine Specific Gravity 1.032 (1.001-1.035)
[2022-02-13 12:06] LABS: Albumin 3.6 g/dL (3.4-5.0); Calcium 9.1 mg/dL (8.5-10.1); Potassium 4.1 mmol/L (3.5-5.1)
[2022-02-13 12:17] LABS: BUN/Creatinine Ratio 15.7; Bilirubin, Total 0.5 mg/dL (0.2-1.0); Total Protein 7.8 g/dL (6.4-8.2)
[2022-02-13 12:19] LABS: Free T4 (Free Thyroxine) 0.99 ng/dL (0.89-1.76); Prostate Specific Antigen 1.68 ng/mL (0.0-4.0)
== END | disposition home or self-care (01) ==
LOC: Rad HDHVI 08:01
PROVIDERS: ATTEND Internal Medicine Cardiovascular Disease
DX: I25.10 Atherosclerotic heart disease of native coronary artery without angina pectoris (principal); E55.9 Vitamin D deficiency, unspecified; I25.2 Old myocardial infarction; I11.0 Hypertensive heart disease with heart failure; I50.43 Acute on chronic combined systolic (congestive) and diastolic (congestive) heart failure; E11.9 Type 2 diabetes mellitus without complications; R07.89 Other chest pain; E78.5 Hyperlipidemia, unspecified; D51.3 Other dietary vitamin B12 deficiency anemia; D64.9 Anemia, unspecified; R00.2 Palpitations; R53.1 Weakness; R30.0 Dysuria; C61 Malignant neoplasm of prostate; F17.210 Nicotine dependence, cigarettes, uncomplicated; Z82.49 Family history of ischemic heart disease and other diseases of the circulatory system; Z79.82 Long term (current) use of aspirin; Z79.899 Other long term (current) drug therapy
CPT/HCPCS: 36415; 78452; 80053; 80061; 81003; 82306; 82607; 83036; 84153; 84403; 84439; 84443; 85025; 93005; 96374; 96375; A9500; J0153

== ENCOUNTER → 2022-09-20 | Outpatient (CLI) | payer MEDICARE, BC ==
[~2022-09-20] MED LIST changes: -ADENOSINE 63 MG in GIVE UN-DILUTED 0 ML IV ONE; -ADENOSINE 90 MG/30 ML INJ IV ONE
[2022-09-20 08:48] LABS: Basophils # (auto) 0.1 10 ^3/uL (0-0.2); Eosinophils # (auto) 0.2 10 ^3/uL (0-0.8); Eosinophils % (auto) 2.8 % (0.0-7.0); Hematocrit 50.1 % (41.0-53.0); Hemoglobin 17.3 g/dL (13.5-17.5); Lymphocytes # (auto) 2.3 10 ^3/uL (0.4-5.4); Lymphocytes % (auto) 32.4 % (10.0-50.0); Mean Corpuscular Hemoglobin 31.9 pg (28.0-32.0); Mean Corpuscular Hgb Conc. 34.5 g/dL (32.0-36.0); Mean Corpuscular Volume 92.5 fL (80.0-100.0); Monocytes # (auto) 0.5 10 ^3/uL (0-1.3); Monocytes % (auto) 7.4 % (0.0-12.0); Neutrophils # (auto) 4.1 10 ^3/uL (1.6-8.6); Neutrophils % (auto) 56.4 % (37.0-80.0); Nucleated Red Blood Cells % 1.2 %; Red Blood Cells 5.42 10^6/uL (4.5-5.90); Red Cell Distribution Width 14.2 % (11.8-14.3); White Blood Cell 7.3 10^3/uL (4.4-10.8)
[2022-09-20 08:51] LABS: Urine Blood Negative /uL (Negative); Urine Specific Gravity 1.017 (1.001-1.035)
[2022-09-20 09:16] LABS: Albumin 3.5 g/dL (3.4-5.0); Calcium 9.2 mg/dL (8.5-10.1)
[2022-09-20 09:21] LABS: BUN/Creatinine Ratio 19.8 (10.0-20.0); Bilirubin, Total 0.5 mg/dL (0.2-1.0); Total Protein 7.5 g/dL (6.4-8.2)
[2022-09-20 09:24] LABS: Free T4 (Free Thyroxine) 0.92 ng/dL (0.89-1.76)
[2022-09-20 09:25] LABS: Prostate Specific Antigen 1.82 ng/mL (0.0-4.0)
[2022-09-20 10:08] LABS: Potassium 4.3 mmol/L (3.5-5.1)
== END | disposition home or self-care (01) ==
LOC: LAB 08:29
PROVIDERS: ATTEND Internal Medicine Cardiovascular Disease
DX: E03.9 Hypothyroidism, unspecified (principal); Z00.00 Encounter for general adult medical examination without abnormal findings; E55.9 Vitamin D deficiency, unspecified; E29.1 Testicular hypofunction; E11.9 Type 2 diabetes mellitus without complications; N39.0 Urinary tract infection, site not specified; D51.9 Vitamin B12 deficiency anemia, unspecified; C61 Malignant neoplasm of prostate
CPT/HCPCS: 36415; 80053; 80061; 81003; 82306; 82607; 83036; 84153; 84403; 84439; 84443; 85025

== ENCOUNTER → 2022-10-16 | Outpatient (CLI) | payer MEDICARE, BC ==
[2022-10-16 10:03] LABS: Urine Bacteria FEW /hpf (None Seen); Urine Blood Negative /uL (Negative); Urine Mucus FEW (None Seen); Urine Specific Gravity 1.023 (1.001-1.035); Urine WBC 7 /hpf (0 - 3)
== END | disposition home or self-care (01) ==
LOC: LAB 09:35
PROVIDERS: ATTEND Internal Medicine Cardiovascular Disease
DX: N39.0 Urinary tract infection, site not specified (principal)
CPT/HCPCS: 81001; 87086

== ENCOUNTER → 2022-11-06 | Outpatient (CLI) | payer MEDICARE, BC ==
[~2022-11-06] MED LIST changes: -GEMF-19 PO; +GEMF-66 PO
[2022-11-06 10:01] LABS: Urine Bacteria NONE SEEN /hpf (None Seen); Urine Blood Negative /uL (Negative); Urine Specific Gravity 1.022 (1.001-1.035); Urine WBC 1 /hpf (0 - 3)
== END | disposition home or self-care (01) ==
LOC: LAB 09:40
PROVIDERS: ATTEND Urology
DX: N40.1 Benign prostatic hyperplasia with lower urinary tract symptoms (principal); R31.0 Gross hematuria
CPT/HCPCS: 81001; 84153; 87086

== ENCOUNTER → 2023-01-05 | Outpatient (CLI) | payer MEDICARE, BC | END | disposition home or self-care (01) | LOC: Rad HDHVI 10:50 | PROVIDERS: ATTEND Internal Medicine Cardiovascular Disease | DX: I35.8 Other nonrheumatic aortic valve disorders (principal); R06.02 Shortness of breath; I10 Essential (primary) hypertension | CPT/HCPCS: 93306 ==

== ENCOUNTER → 2023-01-10 | Outpatient (CLI) | payer MEDICARE, BC | END | disposition home or self-care (01) | LOC: Rad HDHVI 10:52 | PROVIDERS: ATTEND Internal Medicine Cardiovascular Disease | DX: I70.203 Unspecified atherosclerosis of native arteries of extremities, bilateral legs (principal); E78.5 Hyperlipidemia, unspecified | CPT/HCPCS: 93925 ==

== ENCOUNTER → 2023-12-24 | Outpatient (CLI) | payer MEDICARE, BC ==
[~2023-12-24] MED LIST changes: -GLIP5TAB12 PO; +GLIP5TAB21 PO; +IOHEXOL 350 MG/ML 100ML IJ ONE
[2023-12-24 10:25] VITALS: BP 168/81; PULSE 67; RESP 20; O2SAT 96
[2023-12-24 10:42] VITALS: BP 151/69; PULSE 64; RESP 18; O2SAT 97
== END | disposition home or self-care (01) ==
LOC: Rad HDHVI 10:06
PROVIDERS: ATTEND Internal Medicine Cardiovascular Disease
DX: R91.1 Solitary pulmonary nodule (principal)
CPT/HCPCS: 71260; G0463; Q9967

== ENCOUNTER → 2024-09-18 | Outpatient (CLI) | payer MEDICARE, BC ==
[~2024-09-18] MED LIST changes: -IOHEXOL 350 MG/ML 100ML IJ ONE
[2024-09-18 07:21] LABS: Basophils # (auto) 0.1 10 ^3/uL (0-0.2); Eosinophils # (auto) 0.3 10 ^3/uL (0-0.8); Eosinophils % (auto) 3.5 % (0.0-7.0); Hematocrit 49.7 % (41.0-53.0); Hemoglobin 17.2 g/dL (13.5-17.5); Lymphocytes # (auto) 2.2 10 ^3/uL (0.4-5.4); Lymphocytes % (auto) 29.2 % (10.0-50.0); Mean Corpuscular Hemoglobin 31.9 pg (28.0-32.0); Mean Corpuscular Hgb Conc. 34.6 g/dL (32.0-36.0); Mean Corpuscular Volume 92.2 fL (80.0-100.0); Monocytes # (auto) 0.5 10 ^3/uL (0-1.3); Monocytes % (auto) 6.6 % (0.0-12.0); Neutrophils # (auto) 4.4 10 ^3/uL (1.6-8.6); Neutrophils % (auto) 59.7 % (37.0-80.0); Nucleated Red Blood Cells % 0.2 %; Platelet Count (auto) 186 10^3/uL (140-450); Red Blood Cells 5.39 10^6/uL (4.5-5.90); Red Cell Distribution Width 14.4 % (11.8-14.3); White Blood Cell 7.4 10^3/uL (4.4-10.8)
[2024-09-18 07:40] LABS: Alanine Aminotransferase 15 U/L (7-40); Albumin 4.3 g/dL (3.2-4.8); Alkaline Phosphatase 94 U/L (46-116); Anion Gap 6 (5-15); Aspartate Aminotransferase 14 U/L (13-40); BUN/Creatinine Ratio 16.2 (10.0-20.0); Blood Urea Nitrogen 17 mg/dL (9-23); Calcium 9.6 mg/dL (8.7-10.4); Carbon Dioxide 28 mmol/L (20-31); Chloride 106 mmol/L (98-107); LDL Cholesterol 67 mg/dL (< 100); Potassium 4.3 mmol/L (3.5-5.1); Sodium 140 mmol/L (136-145); Total Protein 7.1 g/dL (5.7-8.2)
[2024-09-18 07:41] LABS: Bilirubin, Direct 0.2 mg/dL (<0.3); Bilirubin, Total 0.6 mg/dL (0.2-1.0); Cholesterol 136 mg/dL (< 200)
[2024-09-18 07:43] LABS: Glucose 148 mg/dL (74-106); HDL Cholesterol 36 mg/dL (40-59); Triglycerides 196 mg/dL (< 150)
[2024-09-18 07:54] LABS: Urine Clarity CLEAR (Clear); Urine Color Yellow (Yellow)
[2024-09-18 07:55] LABS: Urine Protein, UAD Normal (Negative); Urine Specific Gravity 1.026 (1.001-1.035)
[2024-09-18 07:56] LABS: Urine Blood Normal /uL (Negative); Urine Urobilinogen Normal (Negative)
== END | disposition home or self-care (01) ==
LOC: LAB 06:46
PROVIDERS: ATTEND Internal Medicine Cardiovascular Disease
DX: C61 Malignant neoplasm of prostate (principal); I11.0 Hypertensive heart disease with heart failure; I50.9 Heart failure, unspecified; E11.9 Type 2 diabetes mellitus without complications; E55.9 Vitamin D deficiency, unspecified; D64.9 Anemia, unspecified; R00.9 Unspecified abnormalities of heart beat
CPT/HCPCS: 36415; 80048; 80061; 80076; 81003; 83036; 84153; 84403; 84443; 85025

== ENCOUNTER 2024-10-29 06:27 | Outpatient (CLI) | payer MEDICARE, BC | END 2024-10-29 17:00 | disposition home or self-care (01) | LOC: LAB 06:27 | PROVIDERS: ATTEND Internal Medicine Cardiovascular Disease | DX: E11.9 Type 2 diabetes mellitus without complications (principal) | CPT/HCPCS: 36415; 83036 ==

== ENCOUNTER 2024-12-24 06:56 | Outpatient (CLI) | payer MEDICARE, BC | END 2024-12-24 17:00 | disposition home or self-care (01) | LOC: LAB 06:56 | PROVIDERS: ATTEND Internal Medicine Cardiovascular Disease | DX: E11.9 Type 2 diabetes mellitus without complications (principal) | CPT/HCPCS: 36415; 83036 ==

== ENCOUNTER → 2025-01-23 | Outpatient (CLI) | payer MEDICARE, BC | END | disposition home or self-care (01) | LOC: Rad HDHVI 10:56 | PROVIDERS: ATTEND Internal Medicine Cardiovascular Disease | DX: I50.43 Acute on chronic combined systolic (congestive) and diastolic (congestive) heart failure (principal) | CPT/HCPCS: 93306 ==

== ENCOUNTER 2025-02-11 14:05 | Outpatient (CLI) | payer MEDICARE, BC ==
[~2025-02-11] VITALS: Ht 182.9 cm; Wt 74.8 kg
[2025-02-11] MEDS ORDERED: ADENOSINE 90 MG/30 ML INJ IV ONE (14:14)
[2025-02-11] MEDS ORDERED: ADENOSINE 63 MG in GIVE UN-DILUTED 0 ML IV ONE (15:00)
== END 2025-02-11 17:00 | disposition home or self-care (01) ==
LOC: Rad HDHVI 14:05
PROVIDERS: ATTEND Internal Medicine Cardiovascular Disease
DX: I11.0 Hypertensive heart disease with heart failure (principal); I50.43 Acute on chronic combined systolic (congestive) and diastolic (congestive) heart failure; I73.9 Peripheral vascular disease, unspecified; I42.0 Dilated cardiomyopathy; I25.5 Ischemic cardiomyopathy; E11.21 Type 2 diabetes mellitus with diabetic nephropathy; J44.9 Chronic obstructive pulmonary disease, unspecified; E78.00 Pure hypercholesterolemia, unspecified; F17.210 Nicotine dependence, cigarettes, uncomplicated; Z82.49 Family history of ischemic heart disease and other diseases of the circulatory system
CPT/HCPCS: 78452; 93017; A9500; J0153

== ENCOUNTER 2025-02-18 08:47 | Outpatient (CLI) | payer MEDICARE, BC | END 2025-02-18 17:00 | disposition home or self-care (01) | LOC: Rad HDHVI 08:47 | PROVIDERS: ATTEND Internal Medicine Cardiovascular Disease | DX: I11.0 Hypertensive heart disease with heart failure (principal); I50.33 Acute on chronic diastolic (congestive) heart failure | CPT/HCPCS: 93880 ==